=== PATIENT | male | born 1990 | race Caucasian/White ===

== ENCOUNTER → 2019-11-19 07:46 | Outpatient (BNVA) | payer MEDICAID, SELFPAY | PROVIDERS: Visit Provider Nurse Practitioner | DX: F33.9 Major depressive disorder, recurrent, unspecified (principal); F43.10 Post-traumatic stress disorder, unspecified; F40.01 Agoraphobia with panic disorder | CPT/HCPCS: 99203 ==

== ENCOUNTER → 2019-11-20 08:11 | Outpatient (BNVA) | payer MEDICAID, SELFPAY | PROVIDERS: Visit Provider Counselor Mental Health | DX: F90.0 Attention-deficit hyperactivity disorder, predominantly inattentive type (principal); F43.10 Post-traumatic stress disorder, unspecified; F33.9 Major depressive disorder, recurrent, unspecified | CPT/HCPCS: 90834 ==

== ENCOUNTER → 2020-01-24 08:09 | Outpatient (BNVA) | payer MEDICAID, SELFPAY | PROVIDERS: Visit Provider Nurse Practitioner | DX: F33.9 Major depressive disorder, recurrent, unspecified (principal); F43.10 Post-traumatic stress disorder, unspecified; F40.01 Agoraphobia with panic disorder | CPT/HCPCS: 99214 ==

== ENCOUNTER → 2020-01-25 08:07 | Outpatient (BNVA) | payer MEDICAID, SELFPAY | PROVIDERS: Visit Provider Counselor Mental Health | DX: F90.0 Attention-deficit hyperactivity disorder, predominantly inattentive type (principal); F40.01 Agoraphobia with panic disorder; F43.10 Post-traumatic stress disorder, unspecified; F33.9 Major depressive disorder, recurrent, unspecified | CPT/HCPCS: 90834 ==

== ENCOUNTER → 2020-02-05 08:32 | Outpatient (BNVA) | payer MEDICAID, SELFPAY | PROVIDERS: Visit Provider Counselor Mental Health | DX: F40.01 Agoraphobia with panic disorder (principal); F43.10 Post-traumatic stress disorder, unspecified; F33.9 Major depressive disorder, recurrent, unspecified | CPT/HCPCS: 90834 ==

== ENCOUNTER → 2020-03-19 08:09 | Outpatient (BNVA) | payer MEDICAID, SELFPAY | PROVIDERS: Visit Provider Nurse Practitioner | DX: F33.9 Major depressive disorder, recurrent, unspecified (principal); F43.10 Post-traumatic stress disorder, unspecified | CPT/HCPCS: 99213 ==

== ENCOUNTER 2020-05-06 12:58 | Emergency (ER) | payer MEDICAID, SELFPAY ==
[2020-05-06 13:04] VITALS: BP 117/69; PULSE 139; RESP 24; TEMP 37.2; O2SAT 97; BMI 31.3
[2020-05-06 13:10] VITALS: BP 131/71; PULSE 114; RESP 23; O2SAT 97
--- NOTE | 2020-05-06 13:23 | ECG_ITS ---
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 Measurements Intervals [place] Rate: 141 P: 156 LA: 110 QRS: 8 QRSD: 93 T: 156 QT: 287 QTc: 440 Interpretive Statements ECTOPIC ATRIAL TACHYCARDIA WITH SHORT LA INTERVAL, POSSIBLE ATRIAL FLUTTER INDETERMINATE AXIS ST DEVIATION AND MODERATE T-WAVE ABNORMALITY, CONSIDER LATERAL ISCHEMIA [-0.1+ mV T WAVE IN I/aVL/V5/V6] No previous ECG available for comparison Electronically Signed On 05-06-2020 23:50:34 MANIPULATOR OPERATOR by Sherwin Lewis M.D. [email or web address].[email or web address] health centerElite Education Media Groupgreene memorial hospital.PlaceSpeak/store/NU/[id number] f
--- NOTE | 2020-05-06 13:23 | XR_ITS ---
WS: [id number] Exam: XR chest 1V portable [id number] Date/Time of Exam: 05/06/2020 1:23 PM Reason For Exam: dyspnea/cough Comparison 05/20/2010. Findings: The lungs are clear and fully expanded. Costophrenic angles are sharp. No infiltrates. Bronchovascula r relief appears normal. Cardiac silhouette is unremarkable. Bony elements are intact. XR/XR chest 1V portable [id number] IMPRESSION: Unremarkable chest radiograph.
--- NOTE | 2020-05-06 13:30 | ED_ITS ---
HPI - Arrhythmia/Palpitations General: Chief Complaint: Arrhythmia/Palpitations Stated Complaint: tightness of chest/ rapid heart rate Time Seen by Provider: 05/06/20 13:13 History of Present Illness: HPI narrative: 29-year-old male presents emergency room with complaint of tachycardia rapid irregular heart rate. He states 2 days ago he had 2 beers and then passed out when he woke up there injection macias bilaterally in the antecubital fossa. He states he cannot member what happened to him he is vague aches and pains are his chest and abdomen states his urine has been dark and he has had passed several large stools has been nauseous and vomiting. MD complaint: rapid heart beat Onset (ago): day(s) Duration: constant Severity: moderate Context: occurred during rest and occurred during exertion Associated symptoms: Reports anxiety and sense of impending doom; Deny cough, diaphoresis, muscle cramps, nausea, paresthesias, pre-syncope, short of breath, syncope or vomiting Review of Systems Const: Denies: diaphoresis ENMT: Denies: throat pain, ear or mastoid pain, nasal discharge or nasal congestion Card: Denies: syncope or pre-syncope Resp: Denies: dyspnea, productive cough or non-productive cough GI: Denies: nausea or vomiting : Denies: flank pain, dysuria, urinary frequency or urinary urgency Musc: Denies: muscle cramps Skin/Breast: Denies: rash or pruritus Psych: Reports: anxiety [facility] ED PFSH: Medical History Insomnia disorder, with non-sleep disorder mental comorbidity, recurrent Major depression, recurrent, chronic Mood disorder Nightmares associated with chronic post-traumatic stress disorder Panic disorder with agoraphobia Post traumatic stress disorder (PTSD) Physical Exam Const: COMMON NORMALS: no acute distress GENERAL APPEARANCE: cooperative and comfortable ORIENTATION/CONSCIOUSNESS: Yes awake, Yes oriented to person, Yes oriented to place and Yes oriented to time HENMT: COMMON NORMALS: normocephalic, atraumatic and hearing grossly normal bilaterally HEAD & SCALP: normocephalic and atraumatic Eye: COMMON NORMALS: Equal, round and reactive pupils present, EOMs intact bilaterally, conjunctivae normal and no scleral icterus CONJUNCTIVA: Yes conjunctivae normal PUPIL: Yes Equal, round and reactive pupils present Neck/C-Spine: COMMON NORMALS: full ROM, no lymphadenopathy, supple and no JVD Lymph: LYMPHATIC: no lymphadenopathy noted and no lymphedema noted Resp: COMMON NORMALS: normal respiratory effort, No retractions, No use of accessory muscles and clear to auscultation bilaterally AUSCULTATION: clear to auscultation bilaterally Cardio: COMMON NORMALS: no JVD, regular rate, regular rhythm and No murmurs present (Cardio) RATE: regular rate RHYTHM: regular rhythm GI: COMMON NORMALS: Soft to palpation and No hepatosplenomegaly present AUSCULTATION: Yes normoactive bowel sounds PALPATION: Yes Soft to palpation, No Tenderness to palpation present (GI), No Guarding due to palpation present (GI) and Yes No hepatosplenomegaly present Extremity: COMMON NORMALS: normal to inspection, capillary refill normal, no clubbing, cyanosis or edema, no calf tenderness and no pedal edema Neuro: SENSORIUM/ORIENTATION: Yes oriented to person, Yes oriented to place and Yes oriented to time Skin: COMMON NORMALS: no rashes or lesions noted GENERAL SKIN EXAM: no rashes or lesions noted Course Vital Signs: Vital signs: Vital Signs Temperature 98.9 F 05/06/20 13:04 Pulse Rate 139 H 05/06/20 13:04 Respiratory Rate 24 H 05/06/20 13:04 Blood Pressure 117/69 05/06/20 13:04 Pulse Oximetry 97 05/06/20 13:04 MDM - Arrhythmia/Palpitations MDM Narrative: Medical decision making narrative: Urine drug screen positive for methamphetamines. After doses of beta-mekhi patient heart rate is back to normal sinus rhythm will discharge home avoid use of methamphetamines. Lab Data: Labs: Lab Results 05/06/20 05/06/20 05/06/20 Range/Units 14:10 14:10 14:10 WBC 6.2 (4.0-10.0) 10^3/ uL RBC 5.01 (4.1-5.3) 10^6/u L Hgb 15.8 (11.7-16.6) g/dL Hct 43.2 (42.0-52.0) % MCV 86.2 (80-94) fL MCH 31.5 (28.0-34.0) pg MCHC 36.6 H (30.0-36.0) g/dL RDW 13.3 (12.1-15.1) % Plt Count 284 (130-400) 10^3/c mm MPV 10.0 (7.4-10.4) fL Neut % (Auto) 63.6 % Lymph % (Auto) 29.9 % [place] % (Auto) 5.2 % Eos % (Auto) 0.5 % Baso % (Auto) 0.5 % Neut # (Auto) 3.92 (1.8-7.7) 10^3/u L Lymph # (Auto) 1.8 (0.8-4.8) 10^3/u L [place] # (Auto) 0.3 (0.2-0.9) 10^3/u L Eos # (Auto) 0.0 (0.0-0.8) 10^3/u L Baso # (Auto) 0.0 (0.0-0.1) 10^3/u L Nucleated RBC % (a uto) 0 % Nucleated RBCs # 0.0 /100WBC Sodium 139 (136-145) mmol/L Potassium 3.8 (3.5-5.1) mmol/L Chloride 101 (98-107) mmol/L Carbon Dioxide 25 (22-29) mmol/L Anion Gap 16.8 (5-19) BUN 14 (6-20) mg/dL Creatinine 0.8 (0.7-1.2) mg/dL GFR Calculation 113.5 (90-130) mL/min Glucose 74 (65-115) mg/dL Calculated Osmolal ity 287 (285-295) mOsm/k g Calcium 9.8 (8.5-10.5) mg/dL Total Bilirubin 1.2 (0.15-1.2) mg/dL AST 50 H (0-40) U/L ALT 79 H (0-41) U/L Alkaline Phosphata se 82 (40-130) IU/L Creatine Kinase 255 (39-308) U/L Troponin T Baselin e 54 H (0-15) ng/L Total Protein 7.6 (6.6-8.7) g/dL Albumin 4.4 (3.5-5.2) g/dL Globulin 3.2 (1.3-4.6) g/dL TSH 0.41 (0.27-4.20) uIU/ mL Free T4 1.69 (0.82-1.77) ng/d L Urine Color (Yellow) Urine Appearance (CLEAR) Urine pH (5-7) Ur Specific Gravit y (1.005-1.030) Urine Protein (Negative) Urine Glucose (UA) (Normal) Urine Ketones (Negative) Urine Blood (Negative) Urine Nitrate (Negative) Urine Bilirubin (Negative) Urine Urobilinogen (Negative) mg/dL Ur Leukocyte Emelia ase (Negative) Urine Opiates Scre en (Negative) ng/mL Ur Barbiturates Sc reen (Negative) ng/mL Ur Phencyclidine S crn (Negative) ng/mL Ur Amphetamines Sc reen (Negative) ng/mL U Benzodiazepines Scrn (Negative) ng/mL Urine Cocaine Scre en (Negative) ng/mL U Marijuana (THC) Screen (Negative) ng/mL 05/06/20 05/06/20 Range/Units 14:19 14:19 WBC (4.0-10.0) 10^3/ uL RBC (4.1-5.3) 10^6/u L Hgb (11.7-16.6) g/dL Hct (42.0-52.0) % MCV (80-94) fL MCH (28.0-34.0) pg MCHC (30.0-36.0) g/dL RDW (12.1-15.1) % Plt Count (130-400) 10^3/c mm MPV (7.4-10.4) fL Neut % (Auto) % Lymph % (Auto) % [place] % (Auto) % Eos % (Auto) % Baso % (Auto) % Neut # (Auto) (1.8-7.7) 10^3/u L Lymph # (Auto) (0.8-4.8) 10^3/u L [place] # (Auto) (0.2-0.9) 10^3/u L Eos # (Auto) (0.0-0.8) 10^3/u L Baso # (Auto) (0.0-0.1) 10^3/u L Nucleated RBC % (a uto) % Nucleated RBCs # /100WBC Sodium (136-145) mmol/L Potassium (3.5-5.1) mmol/L Chloride (98-107) mmol/L Carbon Dioxide (22-29) mmol/L Anion Gap (5-19) BUN (6-20) mg/dL Creatinine (0.7-1.2) mg/dL GFR Calculation (90-130) mL/min Glucose (65-115) mg/dL Calculated Osmolal ity (285-295) mOsm/k g Calcium (8.5-10.5) mg/dL Total Bilirubin (0.15-1.2) mg/dL AST (0-40) U/L ALT (0-41) U/L Alkaline Phosphata se (40-130) IU/L Creatine Kinase (39-308) U/L Troponin T Baselin e (0-15) ng/L Total Protein (6.6-8.7) g/dL Albumin (3.5-5.2) g/dL Globulin (1.3-4.6) g/dL TSH (0.27-4.20) uIU/ mL Free T4 (0.82-1.77) ng/d L Urine Color Yellow (Yellow) Urine Appearance Clear (CLEAR) Urine pH 5 (5-7) Ur Specific Gravit y 1.025 (1.005-1.030) Urine Protein Neg (Negative) Urine Glucose (UA) Norm (Normal) Urine Ketones 2+ H (Negative) Urine Blood Neg (Negative) Urine Nitrate Negative (Negative) Urine Bilirubin 1+ H (Negative) Urine Urobilinogen 8 H (Negative) mg/dL Ur Leukocyte Emelia ase Negative (Negative) Urine Opiates Scre en Negative (Negative) ng/mL Ur Barbiturates Sc reen Negative (Negative) ng/mL Ur Phencyclidine S crn Negative (Negative) ng/mL Ur Amphetamines Sc reen Positive H (Negative) ng/mL U Benzodiazepines Scrn Negative (Negative) ng/mL Urine Cocaine Scre en Negative (Negative) ng/mL U Marijuana (THC) Screen Negative (Negative) ng/mL Discharge Plan Discharge Patient Disposition: Home Clinical Impression: Atrial ectopic tachycardia, Methamphetamine use Condition: Stable Prescriptions: No Action Zoloft 100 mg tablet 150 mg PO DAILY@0800 RF: 0 Abilify 2 mg tablet 2 mg PO DAILY@0800 RF: 0 Discharge Orders: Discharge ED (Routine); Ordered 05/06/20 Ordered By: Manny Melo Referrals: Amita Zhao FNP [Primary Care Provider] - Discharge Diet: Usual diet Discharge Activity: Resume usual activity Activity Restrictions/Additional Instructions: Follow-up with primary care doctor in the next 3 to 4 days. Coding Level of Care Code ED Mechanical Design Technician for Chg Fwd Exam Comprehensive
[2020-05-06] MEDS: metoprolol tartrate 50 mg Tablet PO (14:06)
[2020-05-06] MEDS: metoprolol tartrate 25 mg Tablet PO (14:06)
[2020-05-06] MEDS: sodium chloride 0.9% 1,000 ML 999 ML IV (14:07)
[2020-05-06 14:10] VITALS: BP 136/73; PULSE 118; RESP 28; O2SAT 99
[2020-05-06 14:14] LABS: Basophils % 0.5 %; Eosinophils % 0.5 %; Hematocrit 43.2 % (42.0-52.0); Hemoglobin 15.8 g/dL (11.7-16.6); Lymphocytes # 1.8 10^3/uL (0.8-4.8); Lymphocytes % 29.9 %; Mean Corpuscular HGB Conc 36.6 g/dL (30.0-36.0); Mean Corpuscular Hemoglobin 31.5 pg (28.0-34.0); Mean Corpuscular Volume 86.2 fL (80-94); Monocytes # 0.3 10^3/uL (0.2-0.9); Monocytes % 5.2 %; Neutrophils # 3.92 10^3/uL (1.8-7.7); Neutrophils % 63.6 %; Nucleated Red Blood Cells % 0 %; Platelet Count 284 10^3/cmm (130-400); Red Blood Count 5.01 10^6/uL (4.1-5.3); Red Cell Distribution Width 13.3 % (12.1-15.1); White Blood Count 6.2 10^3/uL (4.0-10.0)
[2020-05-06 14:37] LABS: Add Urine Microscopic? NO
[2020-05-06 14:37] LABS: Troponin(5th) Baseline 54 ng/L (0-15)
[2020-05-06 14:46] LABS: Alanine Aminotransferase 79 U/L (0-41); Albumin Level 4.4 g/dL (3.5-5.2); Alkaline Phosphatase 82 IU/L (40-130); Anion Gap 16.8 (5-19); Aspartate Amino Transferase 50 U/L (0-40); Blood Urea Nitrogen 14 mg/dL (6-20); Calcium 9.8 mg/dL (8.5-10.5); Carbon Dioxide 25 mmol/L (22-29); Chloride 101 mmol/L (98-107); Creatine Phosphokinase 255 U/L (39-308); Free T4 Free Thyroxine 1.69 ng/dL (0.82-1.77); Globulin 3.2 g/dL (1.3-4.6); Glomerular Filtration Rate 113.5 mL/min (90-130); Glucose 74 mg/dL (65-115); Osmolality Calculated 287 mOsm/kg (285-295); Potassium 3.8 mmol/L (3.5-5.1); Sodium 139 mmol/L (136-145); Thyroid Stimulating Hormone 0.41 uIU/mL (0.27-4.20); Total Bilirubin 1.2 mg/dL (0.15-1.2); Total Protein 7.6 g/dL (6.6-8.7)
[2020-05-06 14:48] LABS: Specific Gravity, Urine 1.025 (1.005-1.030); Urine Appearance Clear (CLEAR); Urine Color Yellow (Yellow); pH Urine 5 (5-7)
[2020-05-06 14:49] LABS: Bilirubin Urine 1+ (Negative); Blood Urine Neg (Negative); Glucose Urine UA Norm (Normal); Ketones Urine 2+ (Negative); Leukocyte Esterase Urine Negative (Negative); Nitrate Urine Negative (Negative); Protein Urine Neg (Negative); Urobilinogen Urine 8 mg/dL (Negative)
[2020-05-06 15:10] VITALS: BP 130/88; PULSE 101; RESP 28
--- NOTE | 2020-05-06 15:23 | ECG_ITS ---
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 Measurements Intervals [place] Rate: 75 P: 36 [place]: 176 QRS: 58 QRSD: 87 T: 45 QT: 373 QTc: 419 Interpretive Statements SINUS RHYTHM WITH SINUS ARRHYTHMIA Compared to ECG 05/06/2020 13:05:51 Indeterminate axis no longer present T-wave abnormality no longer present Possible ischemia no longer present Electronically Signed On 05-07-2020 0:09:50 BISQUE KILN DRAWER by Sherwin Lewis M.D. [email or web address] [email or web address].Hu[employer]/store/OM/[id number]
[2020-05-06 16:10] VITALS: BP 127/98; PULSE 92; RESP 23; O2SAT 99
[2020-05-06 16:31] LABS: Amphetamines Screen Urine Positive (Negative); Barbiturates Screen Urine Negative (Negative); Benzodiazepines Screen Urine Negative (Negative); Cocaine Screen Urine Negative (Negative); Opiate Screen Urine Negative (Negative); PCP Screen Urine Negative (Negative); THC Screen Urine Negative (Negative)
[2020-05-06 16:57] VITALS: BP 125/80; PULSE 84; RESP 24; O2SAT 99
== END 2020-05-06 16:59 | disposition home or self-care (01) ==
PROVIDERS: Emergency Provider Family Medicine; PCP Nurse Practitioner
DX: I47.1 Supraventricular tachycardia (principal); F15.90 Other stimulant use, unspecified, uncomplicated
CPT/HCPCS: 12345; 71045; 80053; 80306; 81003; 82550; 84439; 84443; 84484; 85025; 93005; 96360; 99282; 99283; J7030

== ENCOUNTER 2020-07-27 08:19 | Inpatient (IN) | payer MEDICAID, SELFPAY ==
[2020-07-27] VITALS (11 sets, daily range): BP systolic 109–145; BP diastolic 55–83; PULSE 70–117; RESP 12–22; TEMP 35.8–36.2; O2SAT 96–100; BMI 29.7
--- NOTE | 2020-07-27 08:30 | ECG_ITS ---
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 Measurements Intervals [place] Rate: 78 P: 41 [place]: 178 QRS: 63 QRSD: 99 T: -81 QT: 396 QTc: 453 Interpretive Statements SINUS RHYTHM NONSPECIFIC T-WAVE ABNORMALITY Compared to ECG 05/06/2020 16:55:34 T-wave abnormality now present Sinus arrhythmia no longer present Electronically Signed On 07-27-2020 20:16:28 CDT by Gabbie Gomes M.D. [email or web address] health care systemVirtual Paperuniversity hospitals [facility].[employer]/store/OM/[id number]
[2020-07-27] MEDS: sodium chloride 0.9% 1,000 ML 999 ML IV (08:42)
[2020-07-27 08:55] LABS: Basophils # 0.1 10^3/uL (0.0-0.1); Basophils % 1.1 %; Eosinophils # 0.1 10^3/uL (0.0-0.8); Eosinophils % 2.1 %; Hemoglobin 16.7 g/dL (11.7-16.6); Lymphocytes # 3.3 10^3/uL (0.8-4.8); Lymphocytes % 53.7 %; Mean Corpuscular HGB Conc 36.3 g/dL (30.0-36.0); Mean Corpuscular Hemoglobin 32.6 pg (28.0-34.0); Mean Corpuscular Volume 89.8 fL (80-94); Mean Platelet Volume 10.1 fL (7.4-10.4); Monocytes # 0.5 10^3/uL (0.2-0.9); Monocytes % 8.1 %; Neutrophils # 2.12 10^3/uL (1.8-7.7); Neutrophils % 34.7 %; Nucleated Red Blood Cells % 0 %; Platelet Count 297 10^3/cmm (130-400); Red Blood Count 5.12 10^6/uL (4.1-5.3); Red Cell Distribution Width 13.8 % (12.1-15.1); White Blood Count 6.1 10^3/uL (4.0-10.0)
--- NOTE | 2020-07-27 08:55 | W.ED.OVERDOS ---
HPI - Overdose General: Chief Complaint: Overdose Stated Complaint: OD ON MEDS/ZOLOFT & ABILIFY Time Seen by Provider: 07/27/20 08:28 Source: patient and family Mode of arrival: EMS Limitations: altered mental status History of Present Illness: HPI Narrative: 30-year-old male took an unknown amount of Zoloft and Abilify this morning at around 7:30 AM. He had been drinking last night, and was still hung over, and doesnt know why he took all the pills. His girlfriend was in the bedroom, and states that he went to the bathroom and shut the door, he had not indicated that he was going to do something to hurt himself or that he was upset. He states that the bottles were full , but unable to tell approximate number of pills that he took. He takes 150 mg of Zoloft daily, Abilify 2 mg daily. Last fill date on her records is May 2020, however his pharmacy is not open yet to confirm. His main complaint right now is that he feels nauseous and weak, with abdominal cramping, sweating. No previous history of overdose per his girlfriend. complaint: intentional overdose : Intent: unwilling to say and unknown Context: Accidental Overdose: uncertain what happened Associated symptoms: nausea/vomiting, abdominal pain and lethargy Treatments Prior to Arrival: none Review of Systems General: Reports: ROS unobtainable due to medical condition and ROS unobtainable due to mental status [facility] ED PFSH: Medical History Insomnia disorder, with non-sleep disorder mental comorbidity, recurrent Major depression, recurrent, chronic Mood disorder Nightmares associated with chronic post-traumatic stress disorder Panic disorder with agoraphobia Post traumatic stress disorder (PTSD) Physical Exam Const: COMMON NORMALS: average body habitus GENERAL APPEARANCE: lethargic, ill appearing and diaphoretic; not frail appearing ORIENTATION/CONSCIOUSNESS: Yes awake, Yes oriented to person, Yes oriented to place, Yes confused and Yes lethargic HENMT: COMMON NORMALS: normocephalic and atraumatic HEAD & SCALP: normocephalic and atraumatic FACE & SINUS: normal facial exam and face symmetric Eye: COMMON NORMALS: Equal, round and reactive pupils present, EOMs intact bilaterally, conjunctivae normal and no scleral icterus CONJUNCTIVA: Yes conjunctivae normal PUPIL: Yes Equal, round and reactive pupils present Neck/C-Spine: COMMON NORMALS: no JVD Chest: COMMONS NORMALS: normal inspection of the chest and normal palpation of entire chest wall Resp: COMMON NORMALS: normal respiratory effort EFFORT & INSPECTION: No tachypneic and No respiratory distress Cardio: COMMON NORMALS: no JVD, regular rate and regular rhythm RATE: regular rate RHYTHM: regular rhythm GI: COMMON NORMALS: Normal to inspection, nondistended, normoactive bowel sounds present, Soft to palpation and non-tender PALPATION: Yes Soft to palpation, No Tenderness to palpation present (GI), No Guarding due to palpation present (GI) and No Rigid due to palpation Neuro: SENSORIUM/ORIENTATION: Yes oriented to person, Yes oriented to place, Yes lethargic and Yes fluctuating sensorium MENINGEAL SIGNS: No nuccal rigidity SPEECH: speech normal MOTOR EXAM: no tremor noted, Motor fasciculations not present and Normal motor muscle tone present throughout Psych: APPEARANCE: Yes disheveled ATTITUDE: Yes evasive ACTIVITY/MOTOR BEHAVIOR: Yes Avoids eye contact (attititude/behavior) SPEECH: Yes minimal MOOD & AFFECT: Yes irritable and Yes Flat affect present THOUGHT CONTENT: No Suicidality present, No Homicidality present, No delusions and No Hallucination(s) present MEMORY/COGNITION: Yes memory grossly impaired INSIGHT: Poor insight present (Psych) JUDGEMENT: Poor judgement present (Psych) Course Vital Signs: Vital signs: Vital Signs Temperature 96.6 F L 07/27/20 08:21 Pulse Rate 96 07/27/20 14:17 Respiratory Rate 17 07/27/20 14:17 Blood Pressure 133/70 07/27/20 14:17 Pulse Oximetry 98 07/27/20 14:17 MDM - Overdose MDM Narrative: Medical decision making narrative: 30-year-old male took an unknown amount of Zoloft and Abilify about 1 hour prior to arrival. Actively vomiting and diaphoretic on arrival, but vital signs all stable. Very evasive and vague in his answers-probably due to nausea and other effects of the medicine. Will try to discuss intent of his actions again later when he is feeling better. Poison control was contacted. They agreed with continued supportive care, continuous cardiac monitoring, and serial EKGs. Sinus rhythm with a rate of 78 on initial EKG at 0905. Normal axis. KS 178, QRS 99, QTc 429. Normal QRS morphology. No acute T wave changes. Repeat EKG, 1100; sinus rhythm with a rate of 73, [place] 169, QRS 97, QTc 409. CBC and electrolytes stable. Drug screen negative. Alcohol level 17. LFTs are slightly elevated above baseline. Normal bilirubin. The patient was reevaluated at 1400. He was sitting up, had eaten lunch, said he was feeling better. Still states that he wasn't thinking about anything when he took pills this morning. He denies wanting to kill himself. He denies current suicidal thoughts or ideations, but says he has had them in the past. Has had lots of's stress in his life recently, increase in nightmares and difficulty sleeping, drinking more alcohol, and having relationship problems with several people close to him. He feels like his medicine doesnt help him the way it used to . He does not want to stay in the hospital, says he wants to be at home in his own bed works more comfortable. His girlfriend says that his moods have been labile lately, she is upset that he is not being completely upfront and honest about how he is really feeling. X-ray give him some time to discuss the matter, he said he would voluntarily agree to admission. I called Dr. Ying who accepted the admission but did request that we hold him on a 96-hour hold. Considering the impulsive and dangerous nature of his actions this morning, it is clear that he lacks the insight and judgment to make decisions regarding his own safety at this time. Differential Diagnosis: Overdose Differential Diagnosis: Likely suicide attempt by multiple drug overdose and accidental drug ingestion Medical Records: Attestation: I reviewed the patient's medical records. Lab Data: Attestation: I reviewed the patient's lab results. Labs: Lab Results 07/27/20 07/27/20 07/27/20 Range/Units 08:30 08:30 08:30 WBC 6.1 (4.0-10.0) 10^3/ uL RBC 5.12 (4.1-5.3) 10^6/u L Hgb 16.7 H (11.7-16.6) g/dL Hct 46.0 (42.0-52.0) % MCV 89.8 (80-94) fL MCH 32.6 (28.0-34.0) pg MCHC 36.3 H (30.0-36.0) g/dL RDW 13.8 (12.1-15.1) % Plt Count 297 (130-400) 10^3/c mm MPV 10.1 (7.4-10.4) fL Neut % (Auto) 34.7 % Lymph % (Auto) 53.7 % [place] % (Auto) 8.1 % Eos % (Auto) 2.1 % Baso % (Auto) 1.1 % Neut # (Auto) 2.12 (1.8-7.7) 10^3/u L Lymph # (Auto) 3.3 (0.8-4.8) 10^3/u L [place] # (Auto) 0.5 (0.2-0.9) 10^3/u L Eos # (Auto) 0.1 (0.0-0.8) 10^3/u L Baso # (Auto) 0.1 (0.0-0.1) 10^3/u L Nucleated RBC % (a uto) 0 % Nucleated RBCs # 0.0 /100WBC Sodium 139 (136-145) mmol/L Potassium 3.7 (3.5-5.1) mmol/L Chloride 103 (98-107) mmol/L Carbon Dioxide 23 (22-29) mmol/L Anion Gap 16.7 (5-19) BUN 8 (6-20) mg/dL Creatinine 0.7 (0.7-1.2) mg/dL GFR Calculation 131.5 H (90-130) mL/min Glucose 111 (65-115) mg/dL Calculated Osmolal ity 287 (285-295) mOsm/k g Calcium 9.1 (8.5-10.5) mg/dL Magnesium 1.7 (1.7-2.3) mg/dL Total Bilirubin 0.5 (0.15-1.2) mg/dL AST 68 H (0-40) U/L ALT 139 H (0-41) U/L Alkaline Phosphata se 86 (40-130) IU/L Total Protein 7.6 (6.6-8.7) g/dL Albumin 4.5 (3.5-5.2) g/dL Globulin 3.1 (1.3-4.6) g/dL TSH 0.90 (0.27-4.20) uIU/ mL Urine Color (Yellow) Urine Appearance (CLEAR) Urine pH (5-7) Ur Specific Gravit y (1.005-1.030) Urine Protein (Negative) Urine Glucose (UA) (Normal) Urine Ketones (Negative) Urine Blood (Negative) Urine Nitrate (Negative) Urine Bilirubin (Negative) Urine Urobilinogen (Negative) mg/dL Ur Leukocyte Emelia ase (Negative) Urine RBC (0-2) /hpf Urine WBC (0-5) /hpf Ur Squamous Epith Cells (0-5) /hpf Amorphous Sediment /hpf Urine Bacteria (NONE) /hpf Salicylates < 0.3 L (3-10) mg/dL Urine Opiates Scre en (Negative) ng/mL Acetaminophen < 5.0 L (10-30) ug/mL Ur Barbiturates Sc reen (Negative) ng/mL Ur Phencyclidine S crn (Negative) ng/mL Ur Amphetamines Sc reen (Negative) ng/mL U Benzodiazepines Scrn (Negative) ng/mL Urine Cocaine Scre en (Negative) ng/mL U Marijuana (THC) Screen (Negative) ng/mL Ethyl Alcohol 19 H (0-10) mg/dL 07/27/20 07/27/20 Range/Units 09:15 09:15 WBC (4.0-10.0) 10^3/ uL RBC (4.1-5.3) 10^6/u L Hgb (11.7-16.6) g/dL Hct (42.0-52.0) % MCV (80-94) fL MCH (28.0-34.0) pg MCHC (30.0-36.0) g/dL RDW (12.1-15.1) % Plt Count (130-400) 10^3/c mm MPV (7.4-10.4) fL Neut % (Auto) % Lymph % (Auto) % [place] % (Auto) % Eos % (Auto) % Baso % (Auto) % Neut # (Auto) (1.8-7.7) 10^3/u L Lymph # (Auto) (0.8-4.8) 10^3/u L [place] # (Auto) (0.2-0.9) 10^3/u L Eos # (Auto) (0.0-0.8) 10^3/u L Baso # (Auto) (0.0-0.1) 10^3/u L Nucleated RBC % (a uto) % Nucleated RBCs # /100WBC Sodium (136-145) mmol/L Potassium (3.5-5.1) mmol/L Chloride (98-107) mmol/L Carbon Dioxide (22-29) mmol/L Anion Gap (5-19) BUN (6-20) mg/dL Creatinine (0.7-1.2) mg/dL GFR Calculation (90-130) mL/min Glucose (65-115) mg/dL Calculated Osmolal ity (285-295) mOsm/k g Calcium (8.5-10.5) mg/dL Magnesium (1.7-2.3) mg/dL Total Bilirubin (0.15-1.2) mg/dL AST (0-40) U/L ALT (0-41) U/L Alkaline Phosphata se (40-130) IU/L Total Protein (6.6-8.7) g/dL Albumin (3.5-5.2) g/dL Globulin (1.3-4.6) g/dL TSH (0.27-4.20) uIU/ mL Urine Color Dark yellow (Yellow) Urine Appearance Hazy A (CLEAR) Urine pH 5 (5-7) Ur Specific Gravit y 1.030 (1.005-1.030) Urine Protein 1+ H (Negative) Urine Glucose (UA) Norm (Normal) Urine Ketones Negative (Negative) Urine Blood Neg (Negative) Urine Nitrate Negative (Negative) Urine Bilirubin 1+ H (Negative) Urine Urobilinogen 1 H (Negative) mg/dL Ur Leukocyte Emelia ase Negative (Negative) Urine RBC None (0-2) /hpf Urine WBC None (0-5) /hpf Ur Squamous Epith Cells Rare (0-5) /hpf Amorphous Sediment 3+ /hpf Urine Bacteria 1+ H (NONE) /hpf Salicylates (3-10) mg/dL Urine Opiates Scre en Negative (Negative) ng/mL Acetaminophen (10-30) ug/mL Ur Barbiturates Sc reen Negative (Negative) ng/mL Ur Phencyclidine S crn Negative (Negative) ng/mL Ur Amphetamines Sc reen Negative (Negative) ng/mL U Benzodiazepines Scrn Negative (Negative) ng/mL Urine Cocaine Scre en Negative (Negative) ng/mL U Marijuana (THC) Screen Negative (Negative) ng/mL Ethyl Alcohol (0-10) mg/dL Discharge Plan Discharge Prescriptions: No Action sertraline [Zoloft] 100 mg tablet 150 mg PO DAILY@0800 RF: 0 aripiprazole [Abilify] 2 mg tablet 2 mg PO DAILY@0800 RF: 0 Coding Level of Care Code ED Lab Aid for Emeryg Fwd Exam Comprehensive
--- NOTE | 2020-07-27 09:03 | PC.PHAR ---
PT STATES THAT HE HAS NOT FILLED ANY MEDICATION SINCE MAY. I TOLD HIM THAT HE SHOULD HAVE BEEN OUT BY . HE STATED THAT HE DIDN'T TAKE THEM PRESCRIBED AND HAD MISSED SOME.DOSES. HE STATED THAT HE HAD ON OLD BOTTLE OF ABILIFY THAT HE HAD AT HOME.
[2020-07-27 09:17] LABS: Acetaminophen < 5.0 ug/mL (10-30)
[2020-07-27 09:22] LABS: Alanine Aminotransferase 139 U/L (0-41); Albumin Level 4.5 g/dL (3.5-5.2); Alcohol Level 19 mg/dL (0-10); Alkaline Phosphatase 86 IU/L (40-130); Anion Gap 16.7 (5-19); Aspartate Amino Transferase 68 U/L (0-40); Blood Urea Nitrogen 8 mg/dL (6-20); Calcium 9.1 mg/dL (8.5-10.5); Carbon Dioxide 23 mmol/L (22-29); Chloride 103 mmol/L (98-107); Globulin 3.1 g/dL (1.3-4.6); Glomerular Filtration Rate 131.5 mL/min (90-130); Glucose 111 mg/dL (65-115); Magnesium 1.7 mg/dL (1.7-2.3); Osmolality Calculated 287 mOsm/kg (285-295); Potassium 3.7 mmol/L (3.5-5.1); Sodium 139 mmol/L (136-145); Total Bilirubin 0.5 mg/dL (0.15-1.2); Total Protein 7.6 g/dL (6.6-8.7)
[2020-07-27 09:38] LABS: Salicylate < 0.3 mg/dL (3-10)
--- NOTE | 2020-07-27 10:05 | PC.NURSE ---
patient Girlfriend and mother expressed worry that the ingestion of medication was a suicide attempt as they reported that he has previous attempts, they are unwilling to fill out affidavits at this time wanting to speak with him so that he will admit voluntary, but the gf said if he does not she will fill out affidavit
--- NOTE | 2020-07-27 10:10 | PC.NURSE ---
patient denies SI and HI to this nurse at this time
[2020-07-27 10:24] LABS: Amphetamines Screen Urine Negative (Negative); Barbiturates Screen Urine Negative (Negative); Benzodiazepines Screen Urine Negative (Negative); Cocaine Screen Urine Negative (Negative); Opiate Screen Urine Negative (Negative); PCP Screen Urine Negative (Negative); THC Screen Urine Negative (Negative)
[2020-07-27 10:39] LABS: Add Urine Microscopic? YES; Bilirubin Urine 1+ (Negative); Blood Urine Neg (Negative); Glucose Urine UA Norm (Normal); Ketones Urine Negative (Negative); Leukocyte Esterase Urine Negative (Negative); Nitrate Urine Negative (Negative); Protein Urine 1+ (Negative); Urine Appearance Hazy (CLEAR); Urine Color Dark Yellow (Yellow); Urobilinogen Urine 1 mg/dL (Negative); pH Urine 5 (5-7)
[2020-07-27 10:46] LABS: Amorphous Sediment Urine 3+ /hpf; Bacteria Urine 1+ /hpf; Squamous Epithelial Cell Urine RARE /hpf (0-5)
[2020-07-27 10:47] LABS: Add Urine Culture? No
[2020-07-27] MEDS: lactated ringers 1,000 ML 999 ML IV (11:12)
[2020-07-27] MEDS: LORazepam 0.5 mg Tablet PO (15:10)
[2020-07-27] MEDS: nicotine 2 mg Gum BUCCAL (16:02)
[2020-07-28 06:00] VITALS: BP 128/74; PULSE 79; RESP 16; TEMP 36.7; O2SAT 97
[2020-07-28] MEDS: nicotine 2 mg Gum BUCCAL ×2 (09:28→19:24)
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
[2020-07-28] MEDS: sertraline 100 mg Tablet 200 MG PO (12:25)
[2020-07-28] MEDS: ARIPiprazole 10 mg Tablet 5 MG PO (12:25)
[2020-07-28 13:10] VITALS: BP 136/79; PULSE 65; RESP 18; TEMP 36.7; O2SAT 97
[2020-07-28] MEDS: prazosin 1 mg Capsule PO (19:24)
[2020-07-28 19:35] VITALS: BP 133/95; PULSE 98; RESP 18; TEMP 36.8; O2SAT 97
[2020-07-29 06:00] VITALS: BP 126/83; PULSE 87; RESP 18; TEMP 36.5; O2SAT 97
[2020-07-29] MEDS: sertraline 100 mg Tablet 200 MG PO (07:49)
[2020-07-29] MEDS: nicotine 2 mg Gum BUCCAL (07:49)
[2020-07-29] MEDS: ARIPiprazole 10 mg Tablet 5 MG PO (07:49)
[2020-07-29 09:38] VITALS: BP 126/83; PULSE 87; RESP 18; TEMP 36.5; O2SAT 97
--- NOTE | 2020-07-29 09:42 | P.DS_ITS ---
Diagnoses at Discharge Discharge Diagnosis (1) Major depression, recurrent, chronic: Status: Acute (2) Post traumatic stress disorder (PTSD): Status: Acute (3) Suicidal ideation: Status: Acute Reason for Visit Reason for Visit: OD ON MEDS/ZOLOFT & ABILIFY Hospital Course Hospital Course 30 year old male with history of PTSD, major depressive disorder presenting to the emergency department after ingesting a large number of pills after recently filling his prescriptions after not taking medications for a couple of weeks. Patient continues to report intermittent PTSD and depressive symptoms although he states that he felt like he was not himself when he had ingested the pills; patient states that he feels like he dissociates at times. Given the patient's actions occurred in the context of an acute stressor it is unclear if this is more indicative of an adjustment disorder versus inadequate, immature coping ability given that he has done similar actions under similar circumstances previously. Patient quickly reconstituted on the unit further solidifying that this is unlikely a result of a major depressive episode. Patient's sertraline was increased to 200 mg daily and his Abilify was increased to Abilify 5 mg daily targeting his underlying depression and PTSD while discussing the importance of pursuing trauma based therapy post discharge. Patient tolerated his medication changes well with no reports of any medication side effects. Patient actively participated in unit activities to include group sessions as well as unit milieu with no reports of any behavioral disturbances. Patient was not suicidal at the time of discharge and did not appear to pose an imminent threat of harm to self or others. Low to moderate risk of harm to self given no current suicidal ideation and no current active psychiatric symptoms although patient does have this history of overreactive, impulsive, unexpected behavior in the context of acute stressors which will at times elevated his risk given these inadequate coping strategies in the context of stressors. Use of alcohol or substances would further elevate this risk. Risk mitigation included psychiatric hospitalization for observation for any further suicidal ideation or suicidal behaviors as well as medication stabilization and recommendation to abstain from the use of substances and alcohol as well as encouraging and coordinating for post discharge counseling/therapy targeting the development of more adaptive, appropriate coping strategies. Patient was able to communicate his understanding of the need to develop more adaptive coping strategies in the context of acute life stressors because of concerns that his impulsive behavior could possibly lead to an action that he is not anticipating to include harming himself as well as the need for compliance with his medication, medication management and counseling/therapy follow-up in order to further mitigate his risk of harm to self and others. Involuntary Hold Information 96 Hour Hold: 96 Hour Involuntary Admission: Yes 96 Hour Hold Ending Date: 08/01/20 96 Hour Hold Ending Time: 12:01 Mental Status Exam MSE Comments: Appropriately groomed and dressed, initially lying in bed but sitting up, calm, cooperative, pleasant, good eye contact Speech is normal rate and volume, spontaneous, clear articulation, not pressured I feel good, smiles at times during the interview, full range, not labile Alert and oriented to person, place, time, situation Memory and concentration appear to be fair to intact per interview Thought process, linear, no flight of ideas, no looseness of associations Thought content, no delusions, no hallucinations, no suicidal or homicidal ideation Insight and judgment appear to be fair Discharge Data Data Completed and Pending: Pending at discharge Category Date Time Status Vitamin D 1,25 Di hydroxy Routine Lab 07/28/20 12:02 Received Labs from last 24 hours 07/27/20 08:30 25-OH Vitamin D To myla Pending 1,25 Dihydroxy Vit D2 Pending 1,25 Dihydroxy Vit D3 Pending Vitals: Last Vital Signs Temp 97.7 F 07/29/20 09:38 Pulse 87 07/29/20 09:38 Resp 18 07/29/20 09:38 BP 126/83 07/29/20 09:38 Pulse Ox 97 07/29/20 09:38 Discharge Plan Discharge Patient Disposition: Home Condition: Stable Prescriptions: New prazosin 1 mg Capsule 1 mg PO BEDTIME Qty: 30 RF: 0 sertraline 100 mg Tablet 200 mg PO DAILY Qty: 30 RF: 0 aripiprazole 10 mg Tablet 5 mg PO DAILY Qty: 30 RF: 0 Discontinued sertraline [Zoloft] 100 mg tablet 150 mg PO DAILY@0800 RF: 0 aripiprazole [Abilify] 2 mg tablet 2 mg PO DAILY@0800 RF: 0 Discharge Orders: Discharge Order (Routine); Ordered 07/29/20 Ordered By: Belkys Ying Referrals: Milady Batista PMHNP [Staff Physician] - 08/11/20 1:30 pm (Hospital follow up Phone visit) Discharge Diet: Regular Discharge Activity: Resume usual activity Patient Instructions: Prazosin (By mouth), Sertraline (By mouth), Aripiprazole (By mouth) Discharge Attestations NPU Time Spent in Discharge Care*: greater than 30 min Status at Discharge: Cognitive status at discharge: cognitively intact , Beh avioral status at discharge: cooperative , Functional status at discharge: independent ambulation Overall status at discharge: patient is back to baseline Coding Level of Care Code Acute Equipment Or Machinery Cleaner for Irwin Fwd Diagnoses Major depression, recurrent, chronic F33.9 Post traumatic stress disorder (PTSD) F43.10 Suicidal ideation R45.436
[2020-08-04 01:17] LABS: Vit D 1,25 (Oh)2, Total 27 pg/mL (18-72); Vit D2 1,25 (Oh)2 <8 pg/mL; Vit D3 1,25 (Oh)2 27 pg/mL
== END 2020-07-29 10:31 | disposition home or self-care (01) | DRG 885 ==
LOC: ER 08:51 → NP 15:30
PROVIDERS: Admitting Provider Psychiatry & Neurology Psychiatry; Emergency Provider Family Medicine; Visit Provider Psychiatry & Neurology Psychiatry
DX: F33.9 Major depressive disorder, recurrent, unspecified (principal); R45.851 Suicidal ideations; F43.12 Post-traumatic stress disorder, chronic; F60.9 Personality disorder, unspecified; Z91.14 Patient's other noncompliance with medication regimen; Z63.0 Problems in relationship with spouse or partner; F43.20 Adjustment disorder, unspecified
CPT/HCPCS: 80053; 80306; 80307; 81001; 82652; 83735; 84443; 85025; 93005; 96360; 96361; 99285; J7030

== ENCOUNTER → 2020-08-12 08:59 | Outpatient (BNVA) | payer MEDICAID, SELFPAY | PROVIDERS: Visit Provider Nurse Practitioner | DX: F43.10 Post-traumatic stress disorder, unspecified (principal); F33.9 Major depressive disorder, recurrent, unspecified | CPT/HCPCS: 99214 ==

== ENCOUNTER 2020-09-27 20:35 | Emergency (ER) | payer MEDICAID, SELFPAY ==
[2020-09-27 20:41] VITALS: BP 112/79; PULSE 128; RESP 17; TEMP 36.8; O2SAT 97; BMI 34.0
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
[2020-09-27 20:57] VITALS: PULSE 70; RESP 17; O2SAT 99
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
[2020-09-27] MEDS: lidocaine 1% INJ 20 mL INJECTION (21:26)
[2020-09-27] MEDS: cephALEXin 500 mg Capsule PO (22:45)
[2020-09-27] MEDS: neomycin-poly-bacitracin oint 0.9 gm Pkt 1 APPLIC TOPICAL (22:45)
[2020-09-27 22:52] VITALS: PULSE 81; RESP 17; O2SAT 99
== END 2020-09-27 22:54 | disposition home or self-care (01) ==
PROVIDERS: Emergency Provider Physician Assistant
DX: S61.411A Laceration without foreign body of right hand, initial encounter (principal); S61.217A Laceration without foreign body of left little finger without damage to nail, initial encounter; S60.512A Abrasion of left hand, initial encounter; S60.511A Abrasion of right hand, initial encounter; W25.XXXA Contact with sharp glass, initial encounter
CPT/HCPCS: 12001; 73130; 99283

== ENCOUNTER 2020-09-30 01:09 | Emergency (ER) | payer MEDICAID, SELFPAY ==
[2020-09-30 01:17] VITALS: BP 142/83; PULSE 95; RESP 17; TEMP 36.9; O2SAT 98; BMI 34.0
--- NOTE | 2020-09-30 01:39 | ED_ITS ---
HPI - Psych General: Chief Complaint: Psychiatric Symptoms Stated Complaint: Mhe Time Seen by Provider: 09/30/20 01:15 History of Present Illness: HPI Narrative: Patient is a well-appearing 30-year-old male seen for psychiatric symptoms. He states that he has been previously diagnosed with PTSD and depression and takes medication for this and sees a psychiatrist, however he feels that there may be more to his diagnoses and would like to talk to a psychiatrist tomorrow. He states that he sees shadow people in the corner of his eyes and often hears people talking that he cannot see for often a distance. He states that he has no command hallucinations, only that the voices say mean things. He has never been diagnosed with schizophrenia to his knowledge. He cuts frequently, most recently several days ago on his left arm, however he denies suicidal and homicidal ideation and I believe him. He has no other acute complaints. Review of Systems General: Reports: 10 or more systems reviewed and unremarkable except in HPI and below PFSH ED PFSH: Medical History Insomnia disorder, with non-sleep disorder mental comorbidity, recurrent Major depression, recurrent, chronic Mood disorder Nightmares associated with chronic post-traumatic stress disorder Panic disorder with agoraphobia Post traumatic stress disorder (PTSD) Physical Exam Const: COMMON NORMALS: no acute distress, patient oriented x3 and alert GENERAL APPEARANCE: well kempt HENMT: COMMON NORMALS: normocephalic and atraumatic HEAD & SCALP: normocephalic and atraumatic Eye: COMMON NORMALS: Equal, round and reactive pupils present, EOMs intact bilaterally and no scleral icterus PUPIL: Yes Equal, round and reactive pupils present Resp: COMMON NORMALS: normal respiratory effort and No retractions Cardio: COMMON NORMALS: regular rate, regular rhythm and No murmurs present (Cardio) RATE: regular rate RHYTHM: regular rhythm GI: COMMON NORMALS: Normal to inspection, nondistended, normoactive bowel sounds present, Soft to palpation and non-tender PALPATION: Yes Soft to palpation Neuro: COMMON NORMALS: patient oriented x3 SENSORIUM/ORIENTATION: Yes alert Psych: COMMON NORMALS: cooperative, denies homicidal ideation and denies suicidal ideation APPEARANCE: Yes grossly normal and Yes well kempt ATTITUDE: Yes engaged and Yes paranoid (Admits intermittent paranoia but is not currently seeing or hearing nonexis) ACTIVITY/MOTOR BEHAVIOR: Yes appropriate eye contact and Yes fidgeting SPEECH: Yes rapid MOOD & AFFECT: Yes euthymic mood THOUGHT PROCESS: racing thoughts THOUGHT CONTENT: No Suicidality present, No Homicidality present and Yes Hallucination(s) present auditory and visual Skin: COMMON NORMALS: no rashes or lesions noted GENERAL SKIN EXAM: no rashes or lesions noted OTHER: Multiple self-induced superficial lacerations to left upper extremity, most recently inflicted 3 days ago. There is 1 l aceration of the forearm which is gaping roughly half a centimeter and it is roughly 3 cm in length, however the wound is too old for primary repair. Tetanus is up-to-date. Course Vital Signs: Vital signs: Vital Signs Temperature 98.4 F 09/30/20 01:17 Pulse Rate 91 09/30/20 03:47 Respiratory Rate 14 09/30/20 03:47 Blood Pressure 121/87 09/30/20 03:47 Pulse Oximetry 97 09/30/20 03:47 MDM - Psych MDM Narrative: Medical decision making narrative: Patient remained hemodynamically stable throughout ED course. He is requesting an audience with psychiatry for new symptoms which she feels may be indicative of paranoid schizophrenia. He is seeing shadows and hearing voices of people that are not in the room. He denies alcohol or drug abuse. He spoke with psychiatry who feels he is not a danger to himself or anyone else thus he can be discharged safely for follow-up to a psychiatrist as an outpatient in 1 week. He knows he is was welcome back to the emergency department if his symptoms get worse before patient follow-up. Discharge Plan Discharge Patient Disposition: Home Clinical Impression: Major depression, recurrent, chronic, Post traumatic stress disorder (PTSD), ADHD, predominantly inattentive type, Auditory hallucinations, Episodes of formed visual hallucinations Condition: Stable Prescriptions: No Action aripiprazole 10 mg tablet 5 mg PO DAILY Qty: 30 RF: 1 prazosin 1 mg capsule 1 mg PO BEDTIME Qty: 30 RF: 1 sertraline 100 mg tablet 200 mg PO DAILY Qty: 30 RF: 1 cephalexin 500 mg capsule 500 mg PO Q6H 4 Days Qty: 16 RF: 0 Discharge Orders: Discharge ED (Routine); Ordered 09/30/20 Ordered By: Ruben Redd Discharge Diet: Usual diet Discharge Activity: Resume usual activity Patient Instructions: Opioid Safety Activity Restrictions/Additional Instructions: Please follow-up with your psychiatrist as previously planned. You are was welcome back in the emergency department if your symptoms get worse before he can be seen as an outpatient. Coding Level of Care Code ED Shadowgraph Scale Operator for Irwin Fwd Exam Comprehensive
[2020-09-30 03:47] VITALS: BP 121/87; PULSE 91; RESP 14; O2SAT 97
== END 2020-09-30 03:49 | disposition home or self-care (01) ==
PROVIDERS: Emergency Provider Student in an Organized Health Care Education/Training Program
DX: R44.0 Auditory hallucinations (principal); R44.1 Visual hallucinations; F32.89 Other specified depressive episodes; F43.10 Post-traumatic stress disorder, unspecified; F90.0 Attention-deficit hyperactivity disorder, predominantly inattentive type
CPT/HCPCS: 99283

== ENCOUNTER → 2021-01-02 08:43 | Outpatient (BNVA) | payer OTHER, SELFPAY | PROVIDERS: Visit Provider Counselor Mental Health | DX: F40.01 Agoraphobia with panic disorder (principal); F43.12 Post-traumatic stress disorder, chronic; F33.9 Major depressive disorder, recurrent, unspecified; F22 Delusional disorders | CPT/HCPCS: 90834 ==

== ENCOUNTER → 2021-01-14 08:00 | Outpatient (BNVA) | payer OTHER, SELFPAY | PROVIDERS: Visit Provider Counselor Mental Health | DX: F40.01 Agoraphobia with panic disorder (principal); F43.10 Post-traumatic stress disorder, unspecified; F33.9 Major depressive disorder, recurrent, unspecified | CPT/HCPCS: 90834 ==

== ENCOUNTER → 2021-01-21 08:45 | Outpatient (BNVA) | payer OTHER, SELFPAY | PROVIDERS: Visit Provider Counselor Mental Health | DX: F40.01 Agoraphobia with panic disorder (principal); F43.10 Post-traumatic stress disorder, unspecified; F33.9 Major depressive disorder, recurrent, unspecified | CPT/HCPCS: 90834 ==

== ENCOUNTER → 2021-01-28 07:43 | Outpatient (BNVA) | payer OTHER, SELFPAY | PROVIDERS: Visit Provider Counselor Mental Health | DX: F40.01 Agoraphobia with panic disorder (principal); F43.10 Post-traumatic stress disorder, unspecified; F33.9 Major depressive disorder, recurrent, unspecified | CPT/HCPCS: 90834 ==

== ENCOUNTER → 2021-02-04 13:44 | Outpatient (BNVA) | payer OTHER, SELFPAY | PROVIDERS: Visit Provider Nurse Practitioner Psychiatric/Mental Health | DX: F33.3 Major depressive disorder, recurrent, severe with psychotic symptoms (principal); F43.10 Post-traumatic stress disorder, unspecified; F17.290 Nicotine dependence, other tobacco product, uncomplicated; F51.5 Nightmare disorder; Z03.89 Encounter for observation for other suspected diseases and conditions ruled out | CPT/HCPCS: 99215 ==

== ENCOUNTER → 2021-02-05 12:56 | Outpatient (BNVA) | payer OTHER, SELFPAY | PROVIDERS: Visit Provider Nurse Practitioner Psychiatric/Mental Health | DX: Z03.89 Encounter for observation for other suspected diseases and conditions ruled out (principal) | CPT/HCPCS: 80053; 80061; 83036 ==

== ENCOUNTER → 2021-02-11 12:46 | Outpatient (BNVA) | payer OTHER, SELFPAY | PROVIDERS: Visit Provider Counselor Mental Health | DX: F43.11 Post-traumatic stress disorder, acute (principal); F33.9 Major depressive disorder, recurrent, unspecified; F41.1 Generalized anxiety disorder | CPT/HCPCS: 90834 ==

== ENCOUNTER → 2021-02-18 09:36 | Outpatient (BNVA) | payer OTHER, SELFPAY | PROVIDERS: Visit Provider Nurse Practitioner Psychiatric/Mental Health | DX: F33.3 Major depressive disorder, recurrent, severe with psychotic symptoms (principal); F51.5 Nightmare disorder; F43.10 Post-traumatic stress disorder, unspecified; F17.290 Nicotine dependence, other tobacco product, uncomplicated | CPT/HCPCS: 99215 ==

== ENCOUNTER → 2021-03-04 08:43 | Outpatient (BNVA) | payer OTHER, SELFPAY | PROVIDERS: Visit Provider Counselor Mental Health | DX: F43.11 Post-traumatic stress disorder, acute (principal); F33.9 Major depressive disorder, recurrent, unspecified | CPT/HCPCS: 90834 ==

== ENCOUNTER 2021-03-12 17:02 | Inpatient (IN) | payer MEDICAID, SELFPAY ==
[2021-03-12 17:08] VITALS: BP 120/70; PULSE 122; RESP 16; TEMP 36.9; O2SAT 95
[2021-03-12 17:16] VITALS: BP 136/77; PULSE 102; RESP 16; TEMP 36.9; O2SAT 97
--- NOTE | 2021-03-12 17:19 | ED_ITS ---
HPI - General Adult General: Chief complaint: Psychiatric Symptoms Stated complaint: SI Time Seen by Provider: 03/12/21 17:15 History of Present Illness: HPI narrative: HPI: [30]yo patient w/ hx of depression BIBA for acute suicidal ideation with plan. for On arrival, the patient is AAOx3 and cooperative with my evaluation. No focal complaints of chest pain, shortness of breath, palpitations, N/V, focal GI/ complaints. +SI. Since noon, patient plans to hang himself. No complaints of hallucinations. Onset: acute since 12pm Duration: ongoing Location: home Severity: severe Review of Systems Narrative: Constitutional: No fever, no chills. HEENT: No vision changes CV: No chest pain, no palpitations PULM: No productive cough, no dyspnea. GI: No abdominal pain, no N/V/D. : No dysuria MSKEL: No muscle pain SKIN: No new rashes, no lesions. NEURO: No headache, no focal weakness. HEME: No visible bruises PSYCH: Normal mood, +SI PFSH ED PFSH: Medical History (Updated 02/16/21 @ 08:11 by Randolph Ying DO) Insomnia disorder, with non-sleep disorder mental comorbidity, recurrent Major depressive disorder, recurrent, severe with psychotic symptoms Mood disorder Nicotine dependence Nightmares associated with chronic post-traumatic stress disorder Panic disorder with agoraphobia Post traumatic stress disorder (PTSD) Psychiatric care Social History Smoking and tobacco status: current every day smoker Alcohol intake: current Alcohol intake frequency: holidays/special occasions only Physical Exam Narrative: EXAM NARRATIVE: Head: Atraumatic Eyes: PERRL, conjunctiva without injection, eyes tracking ENT: Mucous membrane moist NECK: Supple without lymphadenopathy LUNGS: LCTAB CV: RRR ABDOMEN: Soft, nontender EXTREMITY: Normal ROM SKIN: No rash or erythema NEURO: Awake and alert. No focal weakness PSYCH: Cooperative mood and affect. Course Vital Signs: Vital signs: Vital Signs Temperature 98.4 F 03/12/21 17:08 Pulse Rate 122 H 03/12/21 17:08 Respiratory Rate 16 03/12/21 17:08 Blood Pressure 120/70 03/12/21 17:08 Pulse Oximetry 95 03/12/21 17:08 MDM - General Adult MDM Narrative: Medical decision making narrative: [30]yo patient w/ hx of depression presenting for suicidal ideation with plan. HDS, exam within normal limit Thoughts are linear and organized, and the patient has no AH/VH, or HI. Clinically the patient displays no overt toxidrome; they are well appearing, with low suspicion for toxic ingestion given history and exam. Symptoms unlikely 2/2 anemia, hypothyroidism, infection, or ICH. Workup: CBC, CMP, Lipase, salicylate/tylenol, UDS Lab findings: wnl [6:30pm] On reassessment, labs and workup wnl. Patient is hemodynamically stable with no acute medical complaints. Case discussed with psychiatric provider Dr. Martinez at [facility] psych inpatient with recommendation for admission Disposition: Psych Discharge Plan Discharge Prescriptions: No Action prazosin 2 mg capsule 6 mg PO .bedtime Qty: 90 RF: 1 fluoxetine [Prozac] 20 mg capsule 20 mg PO .morning Qty: 30 RF: 1 propranolol 10 mg tablet 10 mg PO .morning Qty: 30 RF: 1 risperidone [Risperdal] 1 mg tablet 1 mg PO BID Qty: 60 RF: 1 Coding Level of Care Code ED Foreign Food Cook Specialty for Irwin Ventura
[2021-03-12 17:36] LABS: Basophils # 0.1 10^3/uL (0.0-0.1); Basophils % 0.7 %; Eosinophils # 0.1 10^3/uL (0.0-0.8); Eosinophils % 0.9 %; Hematocrit 41.2 % (42.0-52.0); Hemoglobin 15.4 g/dL (11.7-16.6); Lymphocytes # 2.4 10^3/uL (0.8-4.8); Lymphocytes % 26.8 %; Mean Corpuscular HGB Conc 37.4 g/dL (30.0-36.0); Mean Corpuscular Hemoglobin 32.9 pg (28.0-34.0); Mean Platelet Volume 10.3 fL (7.4-10.4); Monocytes # 0.4 10^3/uL (0.2-0.9); Monocytes % 4.9 %; Neutrophils # 5.97 10^3/uL (1.8-7.7); Neutrophils % 66.5 %; Nucleated Red Blood Cells % 0 %; Platelet Count 247 10^3/cmm (130-400); Red Blood Count 4.68 10^6/uL (4.1-5.3); Red Cell Distribution Width 12.8 % (12.1-15.1)
[2021-03-12 17:57] LABS: Anion Gap 13.3 (5-19); Blood Urea Nitrogen 8 mg/dL (6-20); Calcium 9.3 mg/dL (8.5-10.5); Carbon Dioxide 24 mmol/L (22-29); Chloride 105 mmol/L (98-107); Glomerular Filtration Rate 131.5 mL/min (90-130); Glucose 101 mg/dL (65-115); Osmolality Calculated 286 mOsm/kg (285-295); Potassium 3.3 mmol/L (3.5-5.1); Sodium 139 mmol/L (136-145)
[2021-03-12 18:00] LABS: Acetaminophen < 5.0 ug/mL (10-30); Salicylate < 0.3 mg/dL (3-10)
[2021-03-12 18:03] LABS: Amphetamines Screen Urine Negative (Negative); Barbiturates Screen Urine Negative (Negative); Benzodiazepines Screen Urine Negative (Negative); Cocaine Screen Urine Negative (Negative); Opiate Screen Urine Negative (Negative); PCP Screen Urine Negative (Negative); THC Screen Urine Negative (Negative)
--- NOTE | 2021-03-12 18:09 | PC.NURSE ---
Pt arrived via POV from her PCP, pt has been having intermittent chest pain since January. Pt denies any pain, no N/V, just doing what my doctor told me to do . Pt A/O x4, vs taken, pt placed on monitor.
--- NOTE | 2021-03-12 18:29 | PC.NURSE ---
Pt requesting to leave AMA, Dr. Ventura advised and went in to talk with pt. Pt signed AMA paperwork.
--- NOTE | 2021-03-12 18:49 | PC.NURSE ---
Pt arrvied via POV with mother, Pt reports having auditory hallucinations, worse today than they have been as pt reports he has auditory hallucinations all the time. Pt states he was going to hang himself from the shower nusrat. Pts mom reports pt saw his airport operations officer today and was advised he will need to complete the incarciration time he is scheduled for starting today. Mom reports dropping pt off at home and returning about 20 minutes later to findpt extremely distraught and making suicidal statements. Pt A/O, vss, pt changed onto blue scrubs and personal items secured in the file cabinet.
[2021-03-12 21:30] VITALS: BP 109/57; PULSE 91; RESP 16; O2SAT 95
[2021-03-13 06:00] VITALS: BP 112/71; PULSE 77; RESP 17; TEMP 36.6; O2SAT 98
[2021-03-13] MEDS: nicotine 2 mg Gum BUCCAL ×6 (08:09→20:34)
[2021-03-13] MEDS: risperiDONE 1 mg Tablet PO ×2 (08:09→17:55)
[2021-03-13] MEDS: propranolol 20 mg Tablet 10 MG PO (08:09)
[2021-03-13] MEDS: fluoxetine 20 mg Capsule PO (08:09)
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
--- NOTE | 2021-03-13 13:47 | NPU.GN ---
[facility] Topic:Dice Breaker Psych Education General Mood of Group: Darvin did attend group this morning. He was social and participated in group activity. Rafat seemed polite with others in the group.
[2021-03-13 14:00] VITALS: BP 105/73; PULSE 74; RESP 20; TEMP 36.9; O2SAT 98
[2021-03-13] MEDS: prazosin 1 mg Capsule PO (20:33)
[2021-03-13] MEDS: prazosin 5 mg Capsule PO (20:33)
[2021-03-13 21:59] VITALS: BP 110/70; PULSE 67; RESP 18; TEMP 36.7; O2SAT 98
[2021-03-14 06:00] VITALS: BP 93/59; PULSE 90; RESP 17; TEMP 36.6; O2SAT 97
[2021-03-14] MEDS: nicotine 2 mg Gum BUCCAL ×7 (06:25→19:03)
[2021-03-14] MEDS: propranolol 20 mg Tablet 10 MG PO (08:08)
[2021-03-14] MEDS: risperiDONE 1 mg Tablet PO ×2 (08:09→11:19)
[2021-03-14] MEDS: fluoxetine 20 mg Capsule PO ×2 (08:09→11:19)
[2021-03-14 14:00] VITALS: BP 93/59; PULSE 90; RESP 17; TEMP 36.6; O2SAT 97
--- NOTE | 2021-03-14 16:49 | W.PM.NPUPNS ---
Subjective NPU Subjective: Interval history: Patient resents today reporting that he is doing okay with the increased medications thus far. He is a little antsy to discharge but respect the fact that he is to be some observation after the changes are made to make sure that they see beneficial and has not been having symptoms and problems that he was having prior to admission. He denied he other concerns and reports that he is eating okay and sleeping okay. Mental Status Exam MSE Comments: This is an obese, white male, in hospital scrubs, with adequate grooming and eye contact. No abnormal movements. Cooperative with exam in no acute distress. Speech was normal rate and volume. Mood described as ?shitty?; affect euthymic. Thought process, organized. Thought content: patient endorsed suicidality but denies homicidality; he endorsed paranoia but did not appear guarded; he endorsed that he hears voices, most of the time, and occasionally sees things, but he did not appear to be attending to internal stimuli. Attention and concentration appeared intact, and memory appeared reliable, but none were formally tested. He is alert and oriented times three. Insight and judgment appear fair. Impulse control is impaired. Vitals/I&O/Wt Last Vital Signs Temp 97.9 F 03/14/21 14:00 Pulse 90 03/14/21 14:00 Resp 17 03/14/21 14:00 BP 93/59 03/14/21 14:00 Pulse Ox 97 03/14/21 14:00 Weight last 48 hrs Weight 90.718 kg Data NPU : 03/12/21 17:30 03/12/21 17:30 A&P Additional A&P Information (1) Nicotine dependence: (2) Major depressive disorder, recurrent, severe with psychotic symptoms: (3) Post traumatic stress disorder (PTSD): (4) Nightmares associated with chronic post-traumatic stress disorder: (5) ADHD, predominantly inattentive type: (6) Insomnia disorder, with non-sleep disorder mental comorbidity, recurrent: (7) Panic disorder with agoraphobia: Additional A&P Information This is a 30-year-old, white male, with post-traumatic stress disorder, and major depressive disorder, recurrent, who presents with suicidal thinking and reports that he can not contract for safety outside of the hospital. 1. Continue current medication. We will consider increasing propranolol tomorrow. 2. Encourage individual, group, and milieu therapy. 3. Continue q-15 minute checks for safety. Involuntary Hold Information 96 Hour Hold: 96 Hour Involuntary Admission: No 96 Hour Hold Ending Date: 08/01/20 96 Hour Hold Ending Time: 12:01 Attestations NPU Medical Necessity Statement*: Inpatient hospitalization is medically necessary and the clinically appropriate intervention, at this time. We will monitor medications and make changes as indicated. Likely length of stay is 2-4 days. Coding Level of Care Code Acute Arborist Representative for Irwin Vnetura
[2021-03-14] MEDS: risperiDONE 1 mg Tablet 2 MG PO (18:14)
[2021-03-14] MEDS: prazosin 1 mg Capsule PO (20:26)
[2021-03-14] MEDS: prazosin 5 mg Capsule PO (20:26)
[2021-03-14 22:00] VITALS: BP 114/64; PULSE 100; RESP 18; TEMP 36.8; O2SAT 98
[2021-03-15 06:00] VITALS: BP 125/67; PULSE 148; RESP 18; TEMP 36.8; O2SAT 97
[2021-03-15] MEDS: nicotine 2 mg Gum BUCCAL ×5 (06:18→18:21)
[2021-03-15] MEDS: propranolol 20 mg Tablet 10 MG PO (08:17)
[2021-03-15] MEDS: risperiDONE 1 mg Tablet 2 MG PO ×2 (08:17→18:21)
[2021-03-15] MEDS: fluoxetine 20 mg Capsule 40 MG PO (08:17)
[2021-03-15] MEDS: hyDROXYzine 25 mg Capsule 50 MG PO ×2 (12:46→20:25)
--- NOTE | 2021-03-15 12:46 | PC.NURSE ---
PRN VISTARIL ADMINISTERED VISTARIL 50 MG PO FOR PATIENT C/O INCREASING ANXIETY. WILL MONITOR FOR MEDICATION EFFECTIVENESS.
--- NOTE | 2021-03-15 13:22 | W.PM.NPUPNS ---
Subjective NPU Subjective: Interval history: Patient presents today reporting that he is feeling a bit better. He is starting to think about discharge and what is next. He reports that he is responding well to the medication changes he believes and is feeling like he is going to be able to manage himself with his mother support moving forward. We discussed the likelihood of discharge the next 48 hours. Mental Status Exam MSE Comments: This is an obese, white male, in hospital scrubs, with adequate grooming and eye contact. No abnormal movements. Cooperative with exam in no acute distress. Speech was normal rate and volume. Mood described as better; affect euthymic. Thought process, organized. Thought content: patient denied suicidality or homicidality; there were no delusions reported or noted; he denied current auditory or visual hallucinations. Attention and concentration appeared intact, and memory appeared reliable, but none were formally tested. He is alert and oriented times three. Insight and judgment appear fair. Impulse control is limited, but improving. Vitals/I&O/Wt Last Vital Signs Temp 98.2 F 03/15/21 06:00 Pulse 148 H 03/15/21 06:00 Resp 18 03/15/21 06:00 BP 125/67 03/15/21 06:00 Pulse Ox 97 03/15/21 06:00 Weight last 48 hrs Weight 90.718 kg Data NPU : 03/12/21 17:30 03/12/21 17:30 A&P Additional A&P Information (1) Nicotine dependence: (2) Major depressive disorder, recurrent, severe with psychotic symptoms: (3) Post traumatic stress disorder (PTSD): (4) Nightmares associated with chronic post-traumatic stress disorder: (5) ADHD, predominantly inattentive type: (6) Insomnia disorder, with non-sleep disorder mental comorbidity, recurrent: (7) Panic disorder with agoraphobia: Additional A&P Information This is a 30-year-old, white male, with post-traumatic stress disorder, and major depressive disorder, recurrent, who presents with suicidal thinking and reports that he can not contract for safety outside of the hospital. 1. Continue current medication. We will consider increasing propranolol tomorrow. 2. Encourage individual, group, and milieu therapy. 3. Continue q-15 minute checks for safety. Involuntary Hold Information 96 Hour Hold: 96 Hour Involuntary Admission: No 96 Hour Hold Ending Date: 08/01/20 96 Hour Hold Ending Time: 12:01 Attestations NPU Medical Necessity Statement*: Inpatient hospitalization is medically necessary and the clinically appropriate intervention, at this time. We will monitor medications and make changes as indicated. Likely length of stay is 1-3 days. Coding Level of Care Code Acute Communication Center Operator for Irwin Ventura
[2021-03-15 14:00] VITALS: BP 108/66; PULSE 86; RESP 20; TEMP 36.7; O2SAT 97
[2021-03-15] MEDS: prazosin 1 mg Capsule PO (20:25)
[2021-03-15] MEDS: trazodone 50 mg Tablet PO (20:25)
[2021-03-15] MEDS: prazosin 5 mg Capsule PO (20:25)
--- NOTE | 2021-03-15 20:25 | PC.NURSE ---
pt requested sleep and anxiety meds. trazodone 50mg po for sleep and vistaril 50mg po for anxiety given.
[2021-03-15 20:59] VITALS: BP 101/58; PULSE 60; RESP 17; TEMP 36.9; O2SAT 97
--- NOTE | 2021-03-15 22:36 | PC.NURSE ---
pt resting quietly with both eyes closed at this time.
[2021-03-16 06:00] VITALS: BP 132/89; PULSE 78; RESP 15; TEMP 37; O2SAT 98
[2021-03-16] MEDS: nicotine 2 mg Gum BUCCAL ×2 (07:59→10:56)
[2021-03-16] MEDS: propranolol 20 mg Tablet 10 MG PO (07:59)
[2021-03-16] MEDS: risperiDONE 1 mg Tablet 2 MG PO (08:00)
[2021-03-16] MEDS: fluoxetine 20 mg Capsule 40 MG PO (08:00)
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
[2021-03-16 11:45] VITALS: BP 132/89; PULSE 78; RESP 15; TEMP 37; O2SAT 98
--- NOTE | 2021-03-16 11:48 | NPU.GN ---
[facility] Topic:Stressors Psych Education Worksheet General Mood of Group: Rafat did attend group therapy this morning. He participated with others in the group
== END 2021-03-16 11:53 | disposition home or self-care (01) | DRG 885 ==
LOC: ER 18:11 → NP 03-13 06:29
PROVIDERS: Admitting Provider Psychiatry & Neurology Psychiatry; Emergency Provider Emergency Medicine; PCP Family Medicine; Visit Provider Psychiatry & Neurology Psychiatry
DX: F33.3 Major depressive disorder, recurrent, severe with psychotic symptoms (principal); R45.851 Suicidal ideations; G47.00 Insomnia, unspecified; F17.210 Nicotine dependence, cigarettes, uncomplicated; F43.12 Post-traumatic stress disorder, chronic; F40.01 Agoraphobia with panic disorder; Z91.51 Personal history of suicidal behavior; E66.9 Obesity, unspecified; Z68.31 Body mass index [BMI] 31.0-31.9, adult; Z87.820 Personal history of traumatic brain injury; F10.10 Alcohol abuse, uncomplicated; F90.0 Attention-deficit hyperactivity disorder, predominantly inattentive type
CPT/HCPCS: 80048; 80306; 80307; 85025; 97150; 97165; 99285; 99291

== ENCOUNTER → 2021-03-17 08:41 | Outpatient (BNVA) | payer OTHER, SELFPAY | PROVIDERS: Visit Provider Counselor Mental Health | DX: F43.12 Post-traumatic stress disorder, chronic (principal); F33.9 Major depressive disorder, recurrent, unspecified; F41.1 Generalized anxiety disorder | CPT/HCPCS: 90834 ==

== ENCOUNTER → 2021-03-18 09:09 | Outpatient (BNVA) | payer OTHER, SELFPAY | PROVIDERS: Visit Provider Nurse Practitioner Psychiatric/Mental Health | DX: F33.3 Major depressive disorder, recurrent, severe with psychotic symptoms (principal); F43.10 Post-traumatic stress disorder, unspecified; F51.5 Nightmare disorder; F17.290 Nicotine dependence, other tobacco product, uncomplicated; Z87.820 Personal history of traumatic brain injury | CPT/HCPCS: 99214 ==

== ENCOUNTER → 2021-04-08 13:43 | Outpatient (BNVA) | payer OTHER, SELFPAY | PROVIDERS: Visit Provider Counselor Mental Health | DX: F33.3 Major depressive disorder, recurrent, severe with psychotic symptoms (principal); F43.10 Post-traumatic stress disorder, unspecified; F90.0 Attention-deficit hyperactivity disorder, predominantly inattentive type; F39 Unspecified mood [affective] disorder; F51.05 Insomnia due to other mental disorder | CPT/HCPCS: 90834 ==

== ENCOUNTER → 2021-04-15 14:47 | Outpatient (BNVA) | payer OTHER, SELFPAY | PROVIDERS: Visit Provider Counselor Mental Health | DX: F33.3 Major depressive disorder, recurrent, severe with psychotic symptoms (principal); F43.10 Post-traumatic stress disorder, unspecified; F90.0 Attention-deficit hyperactivity disorder, predominantly inattentive type; F39 Unspecified mood [affective] disorder; F51.05 Insomnia due to other mental disorder | CPT/HCPCS: 90834 ==

== ENCOUNTER → 2021-04-16 09:06 | Outpatient (BNVA) | payer OTHER, SELFPAY | PROVIDERS: Visit Provider Nurse Practitioner Psychiatric/Mental Health | DX: F33.3 Major depressive disorder, recurrent, severe with psychotic symptoms (principal); F51.5 Nightmare disorder; F43.10 Post-traumatic stress disorder, unspecified; F17.290 Nicotine dependence, other tobacco product, uncomplicated; Z87.820 Personal history of traumatic brain injury | CPT/HCPCS: 99214 ==

== ENCOUNTER → 2021-05-13 12:47 | Outpatient (BNVA) | payer OTHER, SELFPAY | PROVIDERS: Visit Provider Counselor Mental Health | DX: F33.3 Major depressive disorder, recurrent, severe with psychotic symptoms (principal); F43.10 Post-traumatic stress disorder, unspecified; F90.0 Attention-deficit hyperactivity disorder, predominantly inattentive type; F39 Unspecified mood [affective] disorder; F51.05 Insomnia due to other mental disorder | CPT/HCPCS: 90834 ==

== ENCOUNTER → 2021-05-21 11:42 | Outpatient (BNVA) | payer OTHER, SELFPAY | PROVIDERS: Visit Provider Nurse Practitioner Psychiatric/Mental Health | DX: F33.3 Major depressive disorder, recurrent, severe with psychotic symptoms (principal); F43.10 Post-traumatic stress disorder, unspecified; F17.210 Nicotine dependence, cigarettes, uncomplicated; F51.5 Nightmare disorder; Z79.899 Other long term (current) drug therapy | CPT/HCPCS: 99214 ==

== ENCOUNTER → 2021-05-29 08:47 | Outpatient (BNVA) | payer OTHER, SELFPAY | PROVIDERS: Visit Provider Counselor Mental Health | DX: F33.3 Major depressive disorder, recurrent, severe with psychotic symptoms (principal); F43.10 Post-traumatic stress disorder, unspecified; F90.0 Attention-deficit hyperactivity disorder, predominantly inattentive type; F39 Unspecified mood [affective] disorder; F51.05 Insomnia due to other mental disorder | CPT/HCPCS: 90834 ==

== ENCOUNTER → 2021-06-03 15:15 | Outpatient (BNVA) | payer OTHER, SELFPAY | PROVIDERS: Visit Provider Counselor Mental Health | DX: F33.3 Major depressive disorder, recurrent, severe with psychotic symptoms (principal); F43.10 Post-traumatic stress disorder, unspecified; F90.0 Attention-deficit hyperactivity disorder, predominantly inattentive type; F39 Unspecified mood [affective] disorder; F51.05 Insomnia due to other mental disorder | CPT/HCPCS: 90832 ==

== ENCOUNTER → 2021-06-17 08:57 | Outpatient (BNVA) | payer OTHER, SELFPAY | PROVIDERS: Visit Provider Counselor Mental Health | DX: F33.3 Major depressive disorder, recurrent, severe with psychotic symptoms (principal); F43.10 Post-traumatic stress disorder, unspecified; F90.0 Attention-deficit hyperactivity disorder, predominantly inattentive type; F39 Unspecified mood [affective] disorder; F51.05 Insomnia due to other mental disorder | CPT/HCPCS: 90832 ==

== ENCOUNTER 2021-06-24 10:54 | Inpatient (IN) | payer MEDICAID, SELFPAY ==
[2021-06-24] VITALS (10 sets, daily range): BP systolic 97–135; BP diastolic 54–88; PULSE 80–98; RESP 16–18; TEMP 36.9–37.3; O2SAT 94–100; BMI 33.6
--- NOTE | 2021-06-24 11:11 | CT_ITS ---
WS: [id number] CT FACIAL BONES TECHNIQUE: Noncontrast facial bones with coronal and sagittal reformatted images. CLINICAL INFORMATION: fall COMPARISON: None. DLP: 835.[address] scans at [facility] use at least one of these dose optimization techniques: automated e xposure control; mA and/or kV adjustment per patient size (includes targeted exams where dose is matc hed to clinical indication); or iterative reconstruction. FINDINGS: Mild soft tissue edema overlying the nasal bones. Slight irregularity at the distal nasal tuft. Tiny nondisplaced fracture through the LEFT nasal tip age indeterminant and may be chronic. Maxillary sinu ses are well aerated. Paranasal sinuses are well aerated. Normal zygoma. Normal mastoid air cells. Pterygoid plates are normal. No evidence of mandibular fracture dislocation. Orbits are normal in saray earance. No orbital fractures. Lateral orbits are normal. Dental artifact degrades some images. Karin l parapharyngeal fat. Normal posterior nasopharynx. Normal craniocervical junction. Normal C1-[address]/CT facial bones wo con* [id number] IMPRESSION: 1. Tiny nondisplaced fracture distal LEFT nasal tip. This is age indeterminant and may be chronic. 2. No other visualized facial fractures. 3. Paranasal sinuses and mastoid air cells are well aerated. 4. Normal posterior nasopharynx.
--- NOTE | 2021-06-24 11:11 | XR_ITS ---
WS: [id number] Portable AP upright chest, 06/24/2021 Clinical Data: L sided rib pain Comparison: Portable chest, 05/06/2020. Findings: No nodules, masses or effusions are seen. The heart is normal. The pulmonary vascularity is not increased. No pneumonia or pneumothorax is seen. XR/XR chest 1V portable [id number] Impression: Negative chest.
--- NOTE | 2021-06-24 11:11 | CT_ITS ---
WS: [id number] CT HEAD TECHNIQUE: Noncontrast CT of the head obtained from the skullbase to the vertex. CLINICAL INFORMATION: fall COMPARISON: None. DLP: 1073.[address] scans at [facility] use at least one of these dose optimization techniques: automated e xposure control; mA and/or kV adjustment per patient size (includes targeted exams where dose is matc hed to clinical indication); or iterative reconstruction. FINDINGS: No evidence of intracranial hemorrhage or mass effect. Ventricular system and basal cisterns are ferrara nt. No extra-axial fluid collections. No evidence of mass or mass effect. Normal zabala-white different iation. Incidental cerebellar tonsillar ectopia. Normal 4th ventricle. Paranasal sinuses and mastoid air cells are well aerated. .Normal visualized soft tissues. CT/CT head wo con* [id number] IMPRESSION: 1. No evidence of intracranial hemorrhage or mass effect. 2. Normal zabala-white differentiation. 3. Incidental cerebellar tonsillar ectopia. 4. No acute intracranial findings.
--- NOTE | 2021-06-24 11:12 | ECG_ITS ---
[facility] Test Date: 2021-06-24 Pat Name: Rafat Myers Department: Room: Gender: Male Surgical Services Tech: : 1990 Requested By: Sharath Ventura Order Number: [id number] Zulema MD: Gabbie Gomes M.D. Measurements Intervals [place] Rate: 82 P: 35 OR: 191 QRS: 62 QRSD: 106 T: 8 QT: 400 QTc: 469 Interpretive Statements SINUS RHYTHM Compared to ECG 10/02/2018 12:11:36 Sinus arrhythmia no longer present T-wave abnormality no longer present Possible ischemia no longer present Electronically Signed On 06-24-2021 14:40:28 MIGRATION SPECIALIST by Gabbie Gomes M.D. [email or web address]
--- NOTE | 2021-06-24 11:14 | ED_ITS ---
HPI - General Adult General: Chief complaint: Psychiatric Symptoms Stated complaint: SUICIDAL IDEATIONS Time Seen by Provider: 06/24/21 11:01 History of Present Illness: HPI: [31]yo patient w/ hx of depression BIBA an attempted suicide yesterday night. Patient reported cutting his L forearm, taking 90 tablets of 20mg of propanolol and 15 tablets of fluoxetine 40mg at 15:30 yesterday. Patient also fell on his face and reports bruises ot the face. On arrival, the patient is AAOx3 and cooperative with my evaluation. No focal complaints of chest pain, shortness of breath, palpitations, N/V, focal GI/ complaints. Currently denies HI. No complaints of hallucinations. Unclear last TDAP Onset: acute Duration: ongoing Location: home Severity: moderate Associated symptoms: Reports chest pain; Deny dyspnea, nausea, rash, palpitations or vomiting Review of Systems Const: Denies: fever(s) or chills Eyes: Denies: change in vision ENMT: Denies: mouth pain Card: Reports: chest pain; Denies: palpitations Resp: Denies: dyspnea or non-productive cough GI: Denies: abdominal pain, nausea, vomiting or diarrhea : Denies: dysuria Musc: Reports: other (+L forearm abrasions and lacerations); Denies: extremity pain Skin/Breast: Reports: new lesions (+L forearm lacerations, forehead abrasions); Denies: rash Neuro: Reports: other (+headache); Denies: weakness in extremities Psych: Reports: depression [place]/Lymph: Denies: easy bruising PFSH ED PFSH: Medical History Insomnia disorder, with non-sleep disorder mental comorbidity, recurrent Major depressive disorder, recurrent, severe with psychotic symptoms Mood disorder Nicotine dependence Nightmares associated with chronic post-traumatic stress disorder Panic disorder with agoraphobia Post traumatic stress disorder (PTSD) Psychiatric care Social History Smoking and tobacco status: current every day smoker Alcohol intake: current Alcohol intake frequency: holidays/special occasions only Physical Exam Const: COMMON NORMALS: alert HENMT: COMMON NORMALS: head/scalp not atraumatic (+facial bruises and forehead bruises) HEAD & SCALP: not atraumatic (+facial bruises and forehead bruises) MOUTH: moist mucous membranes not abnormal Eye: COMMON NORMALS: EOMs intact bilaterally and conjunctivae normal CONJUNCTIVA: Yes conjunctivae normal Neck/C-Spine: COMMON NORMALS: full ROM and supple Resp: COMMON NORMALS: normal respiratory effort and clear to auscultation bilaterally AUSCULTATION: clear to auscultation bilaterally Cardio: COMMON NORMALS: regular rate RATE: regular rate GI: COMMON NORMALS: Soft to palpation and non-tender PALPATION: Yes Soft to palpation Extremity: COMMON NORMALS: full ROM NARRATIVE EXTREMITY EXAM: +multiple superficial linear lacerations over the L forearm Neurovascular exam of the L forearm intact Neuro: SENSORIUM/ORIENTATION: Yes alert MOTOR EXAM: No Abnormal motor strength present and Other motor observations present (no focal motor deficits) Psych: COMMON NORMALS: speech normal SPEECH: Yes normal speech MOOD & AFFECT: Yes depressed mood Skin: NARRATIVE SKIN EXAM: +multiple facial and scalp bruises +multiple L forearm lacerations Course 2 Vital Signs: Vital signs: Vital Signs Temperature 98.2 F 06/25/21 06:00 Pulse Rate 93 06/25/21 06:00 Respiratory Rate 16 06/25/21 06:00 Blood Pressure 112/78 06/25/21 06:00 Pulse Oximetry 96 06/25/21 06:00 MDM - General Adult Medical Decision Making [31]yo patient w/ hx of depression and SI presenting for a suicide attempt. HDS, exam within normal limit Thoughts are linear and organized, and the patient has no AH/VH, or HI. Clinically the patient displays no overt toxidrome; they are well appearing, with low suspicion for toxic ingestion given history and exam. Symptoms unlikely 2/2 anemia, hypothyroidism, infection, or ICH. Case was discussed with [place] [facility] [facility] which recommended no further observation since patient is >12 hrs from ingestion of medications. Workup: CBC, CMP, Lipase, salicylate/tylenol, UDS, CT head/CT face, XR chest, EKG Lab findings: wnl, +benzo in urine Incidental findings of mild nasal fracture discussed extensively with patient. Patient received a copy of the CT report with the documented findings. Patient is instructed to follow up urgently with specialists. I have given patient follow up with our case finishing machine adjuster to be seen by our outpatient ENT for nasal fracture. Patient aware of a call from our case finishing machine adjuster to schedule for appointment(s) and verbalizes understanding of the importance of following up. [12:30pm] On reassessment, labs and workup wnl. Patient is hemodynamically stable with no acute medical complaints. Since patient's lacerations can still be closed within 24 hrs, I offered primary closure of these lacerations. However, patient declined. I discussed the risk of leaving the superficial laceration open as patient may have poor cosmesis and lead to scarring. Patient verbalizes everything discussed and still reiterates desire to not have his lacerations closed. Case discussed with psychiatric provider Dr. Rosa at [facility] psych inpatient with recommendation for admission Disposition: Psych Lab Data : 06/24/21 10:45 06/24/21 10:45 Radiology Impressions Chest X-Ray 06/24/21 11:11 Impression: Negative chest. Face CT 06/24/21 11:11 IMPRESSION: 1. Tiny nondisplaced fracture distal LEFT nasal tip. This is age indeterminant and may be chronic. 2. No other visualized facial fractures. 3. Paranasal sinuses and mastoid air cells are well aerated. 4. Normal posterior nasopharynx. Head CT 06/24/21 11:11 IMPRESSION: 1. No evidence of intracranial hemorrhage or mass effect. 2. Normal zabala-white differentiation. 3. Incidental cerebellar tonsillar ectopia. 4. No acute intracranial findings. Laboratory Results WBC 15.4 10^3/uL (4.0-10.0) H 06/24/21 10:45 RBC 4.77 10^6/uL (4.1-5.3) 06/24/21 10:45 Hgb 15.6 g/dL (11.7-16.6) 06/24/21 10:45 Hct 42.5 % (42.0-52.0) 06/24/21 10:45 MCV 89.1 fl (80-94) 06/24/21 10:45 MCH 32.7 pg (28.0-34.0) 06/24/21 10:45 MCHC 36.7 g/dL (30.0-36.0) H 06/24/21 10:45 RDW 12.5 % (12.1-15.1) 06/24/21 10:45 Plt Count 320 10^3/cmm (130-400) 06/24/21 10:45 MPV 10.6 fL (7.4-10.4) H 06/24/21 10:45 Neut % (Auto) 86.2 % 06/24/21 10:45 Lymph % (Auto) 7.9 % 06/24/21 10:45 [place] % (Auto) 5.3 % 06/24/21 10:45 Eos % (Auto) 0.0 % 06/24/21 10:45 Baso % (Auto) 0.1 % 06/24/21 10:45 Neut # (Auto) 13.26 10^3/uL (1.8-7.7) H 06/24/21 10:45 Lymph # (Auto) 1.2 10^3/uL (0.8-4.8) 06/24/21 10:45 [place] # (Auto) 0.8 10^3/uL (0.2-0.9) 06/24/21 10:45 Eos # (Auto) 0.0 10^3/uL (0.0-0.8) 06/24/21 10:45 Baso # (Auto) 0.0 10^3/uL (0.0-0.1) 06/24/21 10:45 Nucleated RBC % (auto) 0 % 06/24/21 10:45 Nucleated RBCs # 0.0 /100WBC 06/24/21 10:45 Sodium 137 mmol/L (136-145) 06/24/21 10:45 Potassium 4.8 mmol/L (3.5-5.1) 06/24/21 10:45 Chloride 102 mmol/L (98-107) 06/24/21 10:45 Carbon Dioxide 22 mmol/L (22-29) 06/24/21 10:45 Anion Gap 17.8 (5-19) 06/24/21 10:45 BUN 16 mg/dL (6-20) 06/24/21 10:45 Creatinine 1.1 mg/dL (0.7-1.2) 06/24/21 10:45 GFR Calculation 77.6 mL/min (90-130) L 06/24/21 10:45 Glucose 119 mg/dL (65-115) H 06/24/21 10:45 Calculated Osmolality 286 mOsm/kg (285-295) 06/24/21 10:45 Calcium 9.2 mg/dL (8.5-10.5) 06/24/21 10:45 Total Bilirubin 1.2 mg/dL (0.15-1.2) 06/24/21 10:45 AST 42 U/L (0-40) H 06/24/21 10:45 ALT 33 U/L (0-41) 06/24/21 10:45 Alkaline Phosphatase 89 IU/L (40-130) 06/24/21 10:45 Total Protein 7.8 g/dL (6.6-8.7) 06/24/21 10:45 Albumin 4.7 g/dL (3.5-5.2) 06/24/21 10:45 Globulin 3.1 g/dL (1.3-4.6) 06/24/21 10:45 Lipase 14 U/L (13-60) 06/24/21 10:45 Salicylates < 0.3 mg/dL (3-10) L 06/24/21 10:45 Acetaminophen < 5.0 ug/mL (10-30) L 06/24/21 10:45 Imaging Data Other Imaging: Radiologist's impression: [address] [address] [address] Scan Report Signed Patient: Rafat Myers II Unit #: [id number] : 1990 Age/Sex: 31 / M ADM Date: 06/24/21 Loc: ER Room/Bed: Attending Dr: Ordering Provider/Ordering MD: Sharath Ventura MD Date of Service: 06/24/21 Procedure(s): CT head wo con* [id number] Accession Number(s): [id number] Report Number: [id number] WS: [id number] CT HEAD TECHNIQUE: Noncontrast CT of the head obtained from the skullbase to the vertex. CLINICAL INFORMATION: fall COMPARISON: None. DLP: 1073.[address] scans at [facility] use at least one of these dose optimization techniques: automated exposure control; mA and/or kV adjustment per patient size (includes targeted exams where dose is matched to clinical indication); or iterative reconstruction. FINDINGS: No evidence of intracranial hemorrhage or mass effect. Ventricular system and basal cisterns are patent. No extra-axial fluid collections. No evidence of mass or mass effect. Normal zabala-white differentiation. Incidental cerebellar tonsillar ectopia. Normal 4th ventricle. Paranasal sinuses and mastoid air cells are well aerated. .Normal visualized soft tissues. CT/CT head wo con* [id number] IMPRESSION: ? 1.? No evidence of intracranial hemorrhage or mass effect. 2.? Normal zabala-white differentiation. 3.? Incidental cerebellar tonsillar ectopia. 4.? No acute intracranial findings. ? Dictated By: Yrn Guido MD Signed By: Yrn Guido MD Signed Date/Time: 06/24/21 1317 DD/ [address] [address] [address] Scan Report Signed Patient: Rafat Myers II Unit #: [id number] : 1990 Age/Sex: 31 / M ADM Date: 06/24/21 Loc: ER Room/Bed: Attending Dr: Ordering Provider/Ordering MD: Sharath Ventura MD Date of Service: 06/24/21 Procedure(s): CT facial bones wo con* [id number] Accession Number(s): [id number] Report Number: [id number] WS: [id number] CT FACIAL BONES TECHNIQUE: Noncontrast facial bones with coronal and sagittal reformatted images. CLINICAL INFORMATION: fall COMPARISON: None. DLP: 835.[address] scans at [facility] use at least one of these dose optimization techniques: automated exposure control; mA and/or kV adjustment per patient size (includes targeted exams where dose is matched to clinical indication); or iterative reconstruction. FINDINGS: Mild soft tissue edema overlying the nasal bones. Slight irregularity at the distal nasal tuft. Tiny nondisplaced fracture through the LEFT nasal tip age indeterminant and may be chronic. Maxillary sinuses are well aerated. Paranasal sinuses are well aerated. Normal zygoma. Normal mastoid air cells. Pterygoid plates are normal. No evidence of mandibular fracture dislocation. Orbits are normal in appearance. No orbital fractures. Lateral orbits are normal. Dental artifact degrades some images. Normal parapharyngeal fat. Normal posterior nasopharynx. Normal craniocervical junction. Normal C1-[address]/CT facial bones wo con* [id number] IMPRESSION: ? 1.? Tiny nondisplaced fracture distal LEFT nasal tip. This is age indeterminant and may be chronic. 2.? No other visualized facial fractures. 3.? Paranasal sinuses and mastoid air cells are well aerated. 4.? Normal posterior nasopharynx. ? Dictated By: Yrn Guido MD Signed By: Yrn Guido MD Signed Date/Time: 06/24/21 1324 DD/ [address] [address] XRay Report Signed Patient: Rafat Myers II Unit #: [id number] : 1990 Age/Sex: 31 / M ADM Date: 06/24/21 Loc: ER Room/Bed: Attending Dr: Ordering Provider/Ordering MD: Sharath Ventura MD Date of Service: 06/24/21 Procedure(s): XR chest 1V portable [id number] Accession Number(s): [id number] Report Number: [id number] WS: [id number] Portable AP upright chest, 06/24/2021 Clinical Data: L sided rib pain Comparison: Portable chest, 05/06/2020. Findings: No nodules, masses or effusions are seen. The heart is normal. The pulmonary vascularity is not increased. No pneumonia or pneumothorax is seen. XR/XR chest 1V portable [id number] Impression: Negative chest. ? Dictated By: Dalila French MD Signed By: Dalila French MD Signed Date/Time: 06/24/21 1313 DD/ 1312 Discharge Plan Discharge Patient Disposition: Admitted As Inpatient Admit Provider: Brent Rosa Clinical Impression: Intentional overdose, Forearm laceration, Depression with suicidal ideation, Closed fracture nasal bone Condition: Stable Coding Level of Care Code ED Electrical Maintenance Supervisor for Chg Fwd Exam Comprehensive
[2021-06-24] MEDS: tetanus-dipt-pertussis 0.5 mL SDV IM (11:31)
[2021-06-24 11:34] LABS: Basophils % 0.1 %; Hematocrit 42.5 % (42.0-52.0); Hemoglobin 15.6 g/dL (11.7-16.6); Lymphocytes # 1.2 10^3/uL (0.8-4.8); Lymphocytes % 7.9 %; Mean Corpuscular HGB Conc 36.7 g/dL (30.0-36.0); Mean Corpuscular Hemoglobin 32.7 pg (28.0-34.0); Mean Corpuscular Volume 89.1 fl (80-94); Mean Platelet Volume 10.6 fL (7.4-10.4); Monocytes # 0.8 10^3/uL (0.2-0.9); Monocytes % 5.3 %; Neutrophils # 13.26 10^3/uL (1.8-7.7); Neutrophils % 86.2 %; Nucleated Red Blood Cells % 0 %; Platelet Count 320 10^3/cmm (130-400); Red Blood Count 4.77 10^6/uL (4.1-5.3); Red Cell Distribution Width 12.5 % (12.1-15.1); White Blood Count 15.4 10^3/uL (4.0-10.0)
[2021-06-24 12:07] LABS: Alanine Aminotransferase 33 U/L (0-41); Albumin Level 4.7 g/dL (3.5-5.2); Alkaline Phosphatase 89 IU/L (40-130); Anion Gap 17.8 (5-19); Aspartate Amino Transferase 42 U/L (0-40); Blood Urea Nitrogen 16 mg/dL (6-20); Calcium 9.2 mg/dL (8.5-10.5); Carbon Dioxide 22 mmol/L (22-29); Chloride 102 mmol/L (98-107); Globulin 3.1 g/dL (1.3-4.6); Glomerular Filtration Rate 77.6 mL/min (90-130); Glucose 119 mg/dL (65-115); Lipase 14 U/L (13-60); Osmolality Calculated 286 mOsm/kg (285-295); Potassium 4.8 mmol/L (3.5-5.1); Sodium 137 mmol/L (136-145); Total Bilirubin 1.2 mg/dL (0.15-1.2); Total Protein 7.8 g/dL (6.6-8.7)
[2021-06-24 12:08] LABS: Acetaminophen < 5.0 ug/mL (10-30); Salicylate < 0.3 mg/dL (3-10)
[2021-06-24] MEDS: sodium chloride 0.9% 1,000 ML 999 ML IV (12:20)
--- NOTE | 2021-06-24 13:10 | PC.NURSE ---
Pt provided lunch and drink at this time.
[2021-06-24 13:34] LABS: Amphetamines Screen Urine Negative (Negative); Barbiturates Screen Urine Negative (Negative); Benzodiazepines Screen Urine Positive (Negative); Cocaine Screen Urine Negative (Negative); Opiate Screen Urine Negative (Negative); PCP Screen Urine Negative (Negative); THC Screen Urine Negative (Negative)
[2021-06-24] MEDS: nicotine 2 mg Gum BUCCAL ×2 (17:24→19:07)
[2021-06-24] MEDS: acetaminophen 325 mg Tablet 650 MG PO (18:34)
[2021-06-24] MEDS: trazodone 50 mg Tablet PO (20:19)
--- NOTE | 2021-06-25 02:49 | PC.NURSE ---
At 2019 the patient requested something to help him sleep. Trazadone 50 mg po given. Medication has been effective as patient continues to sleep.
[2021-06-25 06:00] VITALS: BP 112/78; PULSE 93; RESP 16; TEMP 36.8; O2SAT 96
[2021-06-25] MEDS: nicotine 2 mg Gum BUCCAL ×2 (06:18→19:05)
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
[2021-06-25] MEDS: paliperidone 3 MG, paliperidone 6 MG 9 MG PO (08:57)
[2021-06-25] MEDS: propranolol 20 mg Tablet PO ×3 (08:57→20:18)
[2021-06-25] MEDS: fluoxetine 20 mg Capsule 80 MG PO (08:57)
[2021-06-25] MEDS: acetaminophen 325 mg Tablet 650 MG PO (09:34)
--- NOTE | 2021-06-25 13:33 | DCPLANNER ---
Addendum entered by Rosa Keyes 07/21/21 06:26: ehs manager was notified by [facility] ENT clinic, that when clinic called patient to schedule appointment, that patient declined appointment at this time. Original Note: ehs manager had message to schedule a follow up appointment for patient with ENT. ehs manager emailed patients information to Joan Shipley and Amy at [facility] General Surgery / ENT clinic. Patients information will be printed and reviewed. Clinic will call patient with appointment information.
[2021-06-25 13:56] VITALS: BP 106/64; PULSE 77; RESP 17; TEMP 36.6; O2SAT 98
[2021-06-25 19:40] VITALS: BP 117/73; PULSE 70; RESP 17; TEMP 36.8; O2SAT 98
[2021-06-25] MEDS: prazosin 5 mg Capsule 10 MG PO (20:18)
[2021-06-25] MEDS: blistex lip oint 7 gm Tube 1 APPLIC TOPICAL (20:29)
[2021-06-26 06:00] VITALS: BP 101/66; PULSE 73; RESP 18; TEMP 36.4; O2SAT 96
[2021-06-26] MEDS: nicotine 2 mg Gum BUCCAL (07:42)
[2021-06-26] MEDS: fluoxetine 20 mg Capsule 80 MG PO (09:11)
[2021-06-26] MEDS: paliperidone 3 MG, paliperidone 6 MG 9 MG PO (09:11)
[2021-06-26] MEDS: propranolol 20 mg Tablet PO ×3 (09:11→21:27)
--- NOTE | 2021-06-26 12:12 | P.NPUPN_ITS ---
Subjective NPU Subjective: Interval history: He says that he is doing much better. He attributes that to being here and also possibly the overdose relieving the pressure. He says that has happened before that he feels much better after he overdoses just because he has done something. He did not have any side effects from the Prozac 80 mg this morning. He also thinks that just knowing that it was increased is helping him feel better. That is why he went to the doctor recently as to get his medication increased. He is optimistic that that will help. He understands that he needs to be here for a few days after attempting suicide. He forgot to ask for trazodone last night and did not sleep very well. Mental Status Exam MSE Comments: This is a 31-year old overweight male who appears approximately his stated age and is in no acute distress. He is dressed in hospital scrubs. He is pleasant and cooperative with the evaluation. Eye contact is good. Grooming is fair. psychomotor activity is increased. He is somewhat tremulous and constantly fidgeting Speech is at a regular rate and rhythm, normal volume, good articulation, not pressured. Alert, oriented X3 Attention and concentration appears to be intact. Memory is intact Mood is depressed but better. Affect is mildly dysphoric. Thought process is logical and goal-directed. Thought content: Denies auditory and visual hallucinations. No delusions or paranoia are noted. He denies suicidal ideation. he denies homicidal ideation. Fund of knowledge is average. Insight and judgment appear to be fair. Impulse control is fairly good he has resisted substance abuse surprisingly well. Cognition: Patient Appearance: Appropriate Level of Consciousness: Awake, Alert and Appropriate Patient Cognition Impaired: No Ability to Follow Directions: Good Patient Orientation (long list): Person, Place, Time, Name, Age, Birthday and Year Comprehension Ability: No Impairment Hallucination Type: None Delusion Description: Not Present Thought Process: Appropriate Affect: Affect Description: Appropriate and Calm Depressive Symptoms: Difficulty Sleeping and Hopelessness Behavior: Patient Behavior: Appropriate and Cooperative Speech Pattern: Appropriate and Clear Vitals/I&O/Wt Last Vital Signs Temp 97.5 F L 06/26/21 06:00 Pulse 73 06/26/21 06:00 Resp 18 06/26/21 06:00 BP 101/66 06/26/21 06:00 Pulse Ox 96 06/26/21 06:00 Data NPU : 06/24/21 10:45 06/24/21 10:45 A&P Assessment and plan (1) Intentional overdose: Status: Acute (2) Forearm laceration: Status: Acute (3) Depression with suicidal ideation: Status: Acute (4) Post traumatic stress disorder (PTSD): Status: Chronic (5) 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 Plan: 1. Continue current medication. Except increase the Prozac to 80 mg and trazodone to 100 mg at bedtime. continue prazosin 10 mg, Invega 9 mg, propranolol 20 mg 3 times daily hydroxyzine 50 mg 3 times daily as needed. 2. Continue every 15 minute checks for safety. 3. Encourage individual, group and milieu therapies. 4. Encourage sober living treatment after discharge at the highest level of care to which he is willing to commit. 5. We will monitor for safety for himself in the community prior to discharge. Involuntary Hold Information 2 96 Hour Hold: 96 Hour Involuntary Admission: No 96 Hour Hold Ending Date: 08/01/20 96 Hour Hold Ending Time: 12:01 Attestations NPU Medical Necessity Statement*: Inpatient hospitalization is medically necessary and the clinically appropriate intervention at this time. We will initiate medications and make changes as indicated. Coding Level of Care Code Acute Sharepoint Architect for Irwin Ventura Diagnoses Intentional overdose T50.902A Forearm laceration S51.819A Depression with suicidal ideation F32.A; R45.851 Post traumatic stress disorder (PTSD) F43.10 Nightmares associated with chronic post-traumatic stress disorder F51.5; F43.10
[2021-06-26 13:45] VITALS: BP 114/77; PULSE 75; RESP 18; TEMP 37.1; O2SAT 98
[2021-06-26 20:11] VITALS: BP 116/75; PULSE 74; RESP 16; TEMP 37; O2SAT 96
[2021-06-26] MEDS: prazosin 5 mg Capsule 10 MG PO (21:27)
[2021-06-26] MEDS: trazodone 100 mg Tablet PO (21:48)
[2021-06-27 06:00] VITALS: BP 105/64; PULSE 80; RESP 17; O2SAT 96
[2021-06-27] MEDS: fluoxetine 20 mg Capsule 80 MG PO (08:33)
[2021-06-27] MEDS: paliperidone 3 MG, paliperidone 6 MG 9 MG PO (08:34)
[2021-06-27] MEDS: propranolol 20 mg Tablet PO ×3 (08:34→20:47)
[2021-06-27] MEDS: nicotine 2 mg Gum BUCCAL ×3 (08:34→18:13)
--- NOTE | 2021-06-27 08:52 | W.PM.NPUPNS ---
Subjective NPU Subjective: Interval history: He says that his anxiety is manageable. It is improved. He is optimistic that the increase Prozac will help significantly. He said that 40 mg had previously helped but stopped working. He has a paronychia on the finger on his left hand. He said that he would prefer to soak it in warm water 4 times a day rather than take antibiotics. He is agreeable to stay until Tuesday. Mental Status Exam MSE Comments: This is a 31-year old overweight male who appears approximately his stated age and is in no acute distress. He is dressed in hospital scrubs. He is pleasant and cooperative with the evaluation. Eye contact is good. Grooming is fair. psychomotor activity is increased. He is somewhat tremulous and constantly fidgeting Speech is at a regular rate and rhythm, normal volume, good articulation, not pressured. Alert, oriented X3 Attention and concentration appears to be intact. Memory is intact Mood is depressed but better. Affect is mildly dysphoric. Thought process is logical and goal-directed. Thought content: Denies auditory and visual hallucinations. No delusions or paranoia are noted. He denies suicidal ideation. he denies homicidal ideation. Fund of knowledge is average. Insight and judgment appear to be fair. Impulse control is fairly good he has resisted substance abuse surprisingly well. Cognition: Patient Appearance: Appropriate Level of Consciousness: Awake, Alert and Appropriate Patient Cognition Impaired: No Ability to Follow Directions: Good Patient Orientation (long list): Person, Place, Time, Name, Age and Year Comprehension Ability: No Impairment Hallucination Type: None Delusion Description: Not Present Thought Process: Appropriate Affect: Affect Description: Appropriate Depressive Symptoms: Difficulty Sleeping and Hopelessness Behavior: Patient Behavior: Appropriate Speech Pattern: Appropriate Vitals/I&O/Wt Last Vital Signs Temp 98.6 F 06/26/21 20:11 Pulse 80 06/27/21 06:00 Resp 17 06/27/21 06:00 BP 105/64 06/27/21 06:00 Pulse Ox 96 06/27/21 06:00 Data NPU : 06/24/21 10:45 06/24/21 10:45 A&P Assessment and plan (1) Intentional overdose: Status: Acute (2) Forearm laceration: Status: Acute (3) Depression with suicidal ideation: Status: Acute (4) Post traumatic stress disorder (PTSD): Status: Chronic (5) 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 Plan: 1. Continue current medication. Except increase the Prozac to 80 mg and trazodone to 100 mg at bedtime. continue prazosin 10 mg, Invega 9 mg, propranolol 20 mg 3 times daily hydroxyzine 50 mg 3 times daily as needed. 2. Continue every 15 minute checks for safety. 3. Encourage individual, group and milieu therapies. 4. Encourage sober living treatment after discharge at the highest level of care to which he is willing to commit. 5. We will monitor for safety for himself in the community prior to discharge. Involuntary Hold Information 96 Hour Hold: 96 Hour Involuntary Admission: No 96 Hour Hold Ending Date: 08/01/20 96 Hour Hold Ending Time: 12:01 Attestations NPU Medical Necessity Statement*: Inpatient hospitalization is medically necessary and the clinically appropriate intervention at this time. We will initiate medications and make changes as indicated. Coding Level of Care Code Acute Roll Grinder for Irwin Fwd Diagnoses Intentional overdose T50.902A Forearm laceration S51.819A Depression with suicidal ideation F32.A; R45.851 Post traumatic stress disorder (PTSD) F43.10 Nightmares associated with chronic post-traumatic stress disorder F51.5; F43.10
[2021-06-27 14:00] VITALS: BP 106/66; PULSE 85; RESP 16; TEMP 36.7; O2SAT 98
[2021-06-27] MEDS: prazosin 5 mg Capsule 10 MG PO (20:47)
[2021-06-27 21:19] VITALS: BP 116/74; PULSE 74; RESP 18; TEMP 36.8; O2SAT 98
[2021-06-27] MEDS: trazodone 100 mg Tablet PO (21:20)
[2021-06-28] MEDS: nicotine 2 mg Gum BUCCAL ×2 (05:42→08:53)
[2021-06-28 06:00] VITALS: BP 102/68; PULSE 84; RESP 17; TEMP 36.4; O2SAT 95
[2021-06-28] MEDS: fluoxetine 20 mg Capsule 80 MG PO (08:53)
[2021-06-28] MEDS: propranolol 20 mg Tablet PO ×2 (08:53→14:50)
[2021-06-28] MEDS: paliperidone 3 MG, paliperidone 6 MG 9 MG PO (08:53)
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
[2021-06-28 14:00] VITALS: BP 112/69; PULSE 72; RESP 16; TEMP 36.6; O2SAT 98
[2021-06-28 15:24] VITALS: BP 112/69; PULSE 72; RESP 16; TEMP 36.6; O2SAT 98
--- NOTE | 2021-06-28 15:37 | PC.NURSE ---
TEAM HAS DETERMINED THAT PATIENT IS STABLE TO DC TODAY . DENIES SI/HI AND AVH. MEDICATIONS SENT TO [facility]. DISCHARGING WITH FAMILY MEMBER. ALL PERSONAL BELONGINGS RETURNED TO PATIENT AT [place].
== END 2021-06-28 15:39 | disposition home or self-care (01) | DRG 918 ==
LOC: ER 11:20 → NP 14:27
PROVIDERS: Admitting Provider Psychiatry & Neurology Psychiatry; Emergency Provider Emergency Medicine; Visit Provider Psychiatry & Neurology Psychiatry
DX: T42.4X2A Poisoning by benzodiazepines, intentional self-harm, initial encounter (principal); F33.9 Major depressive disorder, recurrent, unspecified; R45.851 Suicidal ideations; F17.210 Nicotine dependence, cigarettes, uncomplicated; F43.12 Post-traumatic stress disorder, chronic; F41.0 Panic disorder [episodic paroxysmal anxiety]; F41.9 Anxiety disorder, unspecified; S51.819A Laceration without foreign body of unspecified forearm, initial encounter; X58.XXXA Exposure to other specified factors, initial encounter; L03.012 Cellulitis of left finger
CPT/HCPCS: 70450; 70486; 71045; 80053; 80306; 80307; 83690; 85025; 90471; 90715; 93005; 97150; 97165; 99285; J7030

== ENCOUNTER → 2021-07-09 09:05 | Outpatient (BNVA) | payer MEDICAID, SELFPAY | PROVIDERS: Visit Provider Nurse Practitioner Psychiatric/Mental Health | DX: F33.3 Major depressive disorder, recurrent, severe with psychotic symptoms (principal); F51.5 Nightmare disorder; F43.10 Post-traumatic stress disorder, unspecified; F17.210 Nicotine dependence, cigarettes, uncomplicated; F17.290 Nicotine dependence, other tobacco product, uncomplicated | CPT/HCPCS: 99214 ==

== ENCOUNTER → 2021-07-16 13:53 | Outpatient (BNVA) | payer OTHER, SELFPAY | PROVIDERS: Visit Provider Counselor Mental Health | DX: F33.3 Major depressive disorder, recurrent, severe with psychotic symptoms (principal); F43.10 Post-traumatic stress disorder, unspecified; F90.0 Attention-deficit hyperactivity disorder, predominantly inattentive type; F39 Unspecified mood [affective] disorder; F51.05 Insomnia due to other mental disorder | CPT/HCPCS: 90834 ==

== ENCOUNTER → 2021-10-19 13:40 | Outpatient (BNVA) | payer OTHER, SELFPAY | PROVIDERS: Visit Provider Counselor Mental Health | DX: F33.3 Major depressive disorder, recurrent, severe with psychotic symptoms (principal); F43.10 Post-traumatic stress disorder, unspecified; F90.0 Attention-deficit hyperactivity disorder, predominantly inattentive type; F39 Unspecified mood [affective] disorder; F51.05 Insomnia due to other mental disorder | CPT/HCPCS: 90834 ==

== ENCOUNTER → 2021-10-26 15:01 | Outpatient (BNVA) | payer OTHER, SELFPAY | PROVIDERS: Visit Provider Counselor Mental Health | DX: F33.3 Major depressive disorder, recurrent, severe with psychotic symptoms (principal); F43.10 Post-traumatic stress disorder, unspecified; F90.0 Attention-deficit hyperactivity disorder, predominantly inattentive type; F39 Unspecified mood [affective] disorder; F51.05 Insomnia due to other mental disorder | CPT/HCPCS: 90834 ==

== ENCOUNTER → 2021-11-17 12:27 | Outpatient (BNVA) | payer MEDICAID, SELFPAY | PROVIDERS: Referring Provider Nurse Practitioner Psychiatric/Mental Health; Visit Provider Specialist | DX: F07.81 Postconcussional syndrome (principal); F43.10 Post-traumatic stress disorder, unspecified; F60.3 Borderline personality disorder | CPT/HCPCS: 99204 ==

== ENCOUNTER → 2021-11-23 14:17 | Outpatient (BNVA) | payer MEDICAID, SELFPAY | PROVIDERS: Referring Provider Specialist; Visit Provider Specialist | DX: F07.81 Postconcussional syndrome (principal) | CPT/HCPCS: 95816 ==

== ENCOUNTER → 2021-12-24 14:47 | Outpatient (BNVA) | payer OTHER, SELFPAY | PROVIDERS: Visit Provider Registered Nurse Neonatal Intensive Care | DX: R50.9 Fever, unspecified (principal) | CPT/HCPCS: 87426 ==

== ENCOUNTER → 2022-02-09 09:37 | Outpatient (BNVA) | payer MEDICAID, SELFPAY | PROVIDERS: PCP Family Medicine; Visit Provider Specialist | DX: R41.3 Other amnesia (principal); V47 Car occupant injured in collision with fixed or stationary object; F07.81 Postconcussional syndrome | CPT/HCPCS: 99213 ==

== ENCOUNTER 2023-02-16 10:38 | Emergency (ER) | payer MEDICARE, MEDICAID, SELFPAY ==
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
[2023-02-16 11:22] VITALS: BP 121/80; PULSE 83; RESP 18; TEMP 36.8; O2SAT 99; BMI 34.4
[2023-02-16 11:42] VITALS: BP 129/76; PULSE 73; RESP 20; O2SAT 100
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
[2023-02-16] MEDS: ketorolac 60 mg/2 mL INJ IM (12:12)
[2023-02-16 13:44] VITALS: BP 122/78; PULSE 66; RESP 16; O2SAT 99
== END 2023-02-16 13:45 | disposition home or self-care (01) ==
PROVIDERS: Emergency Provider Family Medicine; PCP Family Medicine
DX: S22.32XA Fracture of one rib, left side, initial encounter for closed fracture (principal); W07.XXXA Fall from chair, initial encounter
CPT/HCPCS: 71045; 71101; 96372; 99284; J1885

== ENCOUNTER 2024-05-20 21:15 | Emergency (ER) | payer MEDICARE, MEDICAID, SELFPAY ==
[2024-05-20] VITALS (7 sets, daily range): BP systolic 93–132; BP diastolic 55–90; PULSE 103–141; RESP 22–34; TEMP 36.8; O2SAT 94–98; BMI 28.1
--- NOTE | 2024-05-20 21:36 | ECG_ITS ---
[employer] [employer] 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 Measurements Intervals [place] Rate: 117 P: 71 IA: 169 QRS: 55 QRSD: 90 T: 41 QT: 327 QTc: 457 Interpretive Statements SINUS TACHYCARDIA ST ELEVATION, PROBABLY EARLY REPOLARIZATION [ST ELEVATION WITH NORMALLY INFLECTED T-WAVE] ABNORMAL RHYTHM ECG Compared to ECG 06/24/2021 11:20:37 ST (T wave) deviation now present Early repolarization now present Sinus rhythm no longer present Electronically Signed On 05-22-2024 23:57:26 COLLEGE PROFESSOR by Sherwin Lewis M.D. [email or web address]
[2024-05-20] MEDS: haloperidol inj 5 mg/mL INJ 1 mL IVP (21:43)
[2024-05-20] MEDS: LORazepam 2 mg/mL INJ 1 mL IVP (21:43)
[2024-05-20 21:46] LABS: Basophils # 0.1 10^3/uL (0.0-0.1); Basophils % 0.3 %; Eosinophils % 0.1 %; Hematocrit 42.9 % (37-53); Lymphocytes # 1.7 10^3/uL (0.8-4.8); Lymphocytes % 11.2 %; Mean Corpuscular HGB Conc 37.3 g/dL (30-55); Mean Corpuscular Hemoglobin 33.6 pg (27-33); Mean Corpuscular Volume 90.1 fl (82-101); Mean Platelet Volume 9.9 fL (7.4-10.4); Monocytes # 0.9 10^3/uL (0.2-0.9); Monocytes % 5.8 %; Neutrophils # 12.62 10^3/uL (1.8-7.7); Neutrophils % 82.2 %; Nucleated Red Blood Cells % 0 %; Platelet Count 234 10^3/cmm (157-399); Red Blood Count 4.76 10^6/uL (3.85-5.65); Red Cell Distribution Width 13.5 % (12.1-15.1); White Blood Count 15.35 10^3/uL (3.29-11.43)
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
[2024-05-20 22:05] LABS: Acetaminophen < 5.0 ug/mL (10-30); Alanine Aminotransferase 46 U/L (0-41); Albumin Level 4.3 g/dL (3.5-5.2); Alcohol Level < 10 mg/dL (0-10); Alkaline Phosphatase 91 U/L (40-130); Anion Gap 29.4 (5-19); Aspartate Amino Transferase 86 U/L (0-40); Blood Urea Nitrogen 17 mg/dL (6-20); Calcium 9.6 mg/dL (8.5-10.5); Carbon Dioxide 16 mmol/L (22-29); Chloride 97 mmol/L (98-107); Creatinine Clr Calc Pharmacy 81.8995; Globulin 3.1 g/dL (1.3-4.6); Glomerular Filtration Rate 63.2 mL/min (90-130); Glucose 78 mg/dL (65-115); Osmolality Calculated 288 mOsm/kg (285-295); Potassium 3.4 mmol/L (3.5-5.1); Salicylate 1.4 mg/dL (3-10); Sodium 139 mmol/L (136-145); Total Bilirubin 2.2 mg/dL (0.15-1.2); Total Protein 7.4 g/dL (6.6-8.7)
[2024-05-20 22:34] LABS: Bilirubin Urine 1+ (Negative); Blood Urine 1+ (Negative); Glucose Urine UA Trace (Normal); Ketones Urine 4+ (Negative); Leukocyte Esterase Urine Trace (Negative); Nitrate Urine Negative (Negative); Protein Urine 3+ (Negative); Specific Gravity, Urine 1.027 (1.005-1.030); Urine Appearance Cloudy (CLEAR); pH Urine 5.5 (5-7)
[2024-05-20] MEDS: sodium chloride 0.9% 1,000 ML 999 ML IV ×2 (22:34→23:20)
[2024-05-20 22:40] LABS: Add Urine Microscopic? YES; Bacteria Urine None Seen /hpf; Hyaline Casts Urine 35.98 /lpf; RBC Urine 0-2 /hpf (0-2); Universal Test for UA Present (0)
[2024-05-20 22:42] LABS: Amphetamines Screen Urine Positive (Negative); Barbiturates Screen Urine Negative (Negative); Benzodiazepines Screen Urine Positive (Negative); Cocaine Screen Urine Negative (Negative); Opiate Screen Urine Negative (Negative); PCP Screen Urine Negative (Negative); THC Screen Urine Negative (Negative)
[2024-05-20 22:47] LABS: Lactic Sepsis W/Reflex 6.7 mmol/L (0.5-2.2)
[2024-05-20 22:57] LABS: Urine Color Orange (Yellow)
[2024-05-20 22:58] LABS: Add Urine Culture? No
[2024-05-21 00:14] LABS: Reflex Lactate Order REFLEX LACTIC ORDERD
[2024-05-21 00:30] VITALS: PULSE 130; RESP 24; O2SAT 96
--- NOTE | 2024-05-21 00:40 | XRR_ITS ---
PROCEDURE INFORMATION: Exam: XR Chest Exam date and time: 05/21/2024 12:45 AM Age: 33 years old Clinical indication: Abnormal findings; Abnormal diagnostic tests; Abnormal ekg; Other: Tachycardia; Patient HX: Leukocytosis with tachyardia; Additional info: Tachycardia, leukocytosis TECHNIQUE: Imaging protocol: Radiologic exam of the chest. Views: 1 view. COMPARISON: CR XR ribs LT mn 3V w [id number] [id number] 02/16/2023 12:00 PM FINDINGS: Lungs: Unremarkable. No consolidation. Pleural spaces: Unremarkable. No pleural effusion. No pneumothorax. Heart/Mediastinum: Unremarkable. No cardiomegaly. Bones/joints: Unremarkable. XR/XR chest 1V portable [id number] IMPRESSION: No acute findings.
[2024-05-21 01:15] LABS: Lactic Acid level (Lactate) 1.1 mmol/L (0.5-2.2)
[2024-05-21 02:00] VITALS: BP 131/68; PULSE 121; RESP 20; O2SAT 98
[2024-05-21] MEDS: sodium chloride 0.9% 500 ML 999 ML IV ×2 (02:02)
[2024-05-21 02:17] VITALS: BP 133/89; PULSE 121; RESP 24; O2SAT 94
== END 2024-05-21 02:18 | disposition home or self-care (01) ==
PROVIDERS: Emergency Provider Emergency Medicine; PCP Family Medicine
DX: T50.901A Poisoning by unspecified drugs, medicaments and biological substances, accidental (unintentional), initial encounter (principal); X58.XXXA Exposure to other specified factors, initial encounter
CPT/HCPCS: 36415; 71045; 80053; 80306; 80307; 81001; 83605; 85025; 93005; 96361; 96374; 96375; 99285; J1630; J2060; J7030; J7040

== ENCOUNTER 2024-05-21 03:15 | Inpatient (IN) | payer MEDICARE, MEDICAID, SELFPAY ==
[2024-05-21 03:18] VITALS: BP 109/67; PULSE 133; RESP 20; TEMP 36.9; O2SAT 98; BMI 34.4
--- NOTE | 2024-05-21 03:35 | W.ED.PSYCHS ---
HPI - Psych General: Chief Complaint: Psychiatric Symptoms Stated Complaint: SI\HI Time Seen by Provider: 05/21/24 03:34 History of Present Illness: 33-year-old seen earlier in the morning. He was hallucinating at that point and delirious. He had taken an unintentional overdose of what he believed was acid. He was positive for amphetamines on his drug screen. He was also quite dehydrated, tachycardic, and had a lactic acidosis with anion gap. He was given 2 L of IV fluid, allowed to drink oral fluids, and improved. On discharge he seemed appropriate. Evidently on returning home, there were evidently people they are telling him he should kill himself. He decided that it was not safe to stay there, and he should come back in for psychiatric evaluation and help. Related Data Allergies Allergy/AdvReac Type Severity Reaction Status Date / Time No Known Allergies Allergy Verified 02/16/23 11:25 [facility] [place] ED PFSH: Medical History Nicotine dependence Major depressive disorder, recurrent, severe with psychotic symptoms Nightmares associated with chronic post-traumatic stress disorder ADHD, predominantly inattentive type Mood disorder Insomnia disorder, with non-sleep disorder mental comorbidity, recurrent Panic disorder with agoraphobia Post traumatic stress disorder (PTSD) Social History Smoking and tobacco/nicotine status: never used tobacco/nicotine Quit status (tobacco/nicotine): has tried quititng Number of times tried to quit tobacco: 12 Second hand smoke exposure: No Alcohol intake: current Alcohol intake frequency: holidays/special occasions only Alcohol type: beer and hard liquor Substance/Drug Use: former Date of last use: [age] yrs old. Physical Exam Const: COMMON NORMALS: no acute distress GENERAL APPEARANCE: cooperative; not ill appearing and not frail appearing HENMT: COMMON NORMALS: normocephalic, atraumatic and Normal external nose present HEAD & SCALP: normocephalic and atraumatic FACE & SINUS: normal facial exam and face symmetric NOSE: Normal external nose present Eye: COMMON NORMALS: Equal, round and reactive pupils present and EOMs intact bilaterally PUPIL: Yes Equal, round and reactive pupils present Neck/C-Spine: GENERAL: Yes trachea midline Chest: CHEST: Yes Symmetrical chest wall rise Resp: COMMON NORMALS: normal respiratory effort, No retractions, No use of accessory muscles and clear to auscultation bilaterally AUSCULTATION: clear to auscultation bilaterally Cardio: COMMON NORMALS: regular rhythm RATE: tachycardic RHYTHM: regular rhythm GI: COMMON NORMALS: Normal to inspection, nondistended, normoactive bowel sounds present Extremity: COMMON NORMALS: no pedal edema Neuro: JUAN COMA SCALE: document GCS findings [place] coma scale eye opening: Spontaneous [place] coma scale verbal response: Orientated [place] coma scale motor response: Obey commands [place] coma scale total score: 15 SENSORY EXAM: Yes extremities (intact) Psych: COMMON NORMALS: speech normal SPEECH: Yes normal speech Skin: COMMON NORMALS: no rashes or lesions noted GENERAL SKIN EXAM: no rashes or lesions noted Course Vital Signs: Vital signs: Vital Signs Temperature 98.4 F 05/21/24 03:18 Pulse Rate 133 H 05/21/24 03:18 Respiratory Rate 20 H 05/21/24 03:18 Blood Pressure 109/67 05/21/24 03:18 Pulse Oximetry 98 05/21/24 03:18 Oxygen Delivery Me thod Room Air 05/21/24 03:18 MDM - Psych Medical Decision Making 33-year-old male patient who is here earlier. He became suicidal he says after returning home. He had thoughts of hurting himself, although no specific plan. He is asking for psychiatric evaluation and treatment. Medically, he is mildly tachycardic, but otherwise stable. Lab Data Laboratory Results TSH 1.82 uIU/mL (0.27-4.20) 05/20/24 21:35 Urine Color [place] (Yellow) A 05/21/24 03:25 Urine Appearance Cloudy (CLEAR) A 05/21/24 03:25 Urine pH 5.5 (5-7) 05/21/24 03:25 Ur Specific [place] 1.032 (1.005-1.030) H 05/21/24 03:25 Urine Protein 2+ (Negative) A 05/21/24 03:25 Urine Glucose (UA) Negative (Normal) 05/21/24 03:25 Urine Ketones 3+ (Negative) H 05/21/24 03:25 Urine Blood Trace (Negative) A 05/21/24 03:25 Urine Nitrate Negative (Negative) 05/21/24 03:25 Urine Bilirubin 1+ (Negative) H 05/21/24 03:25 Urine Urobilinogen 1.0 mg/dL (Negative) 05/21/24 03:25 Ur Leukocyte Esterase Trace (Negative) A 05/21/24 03:25 Urine RBC 0-2 /hpf (0-2) 05/21/24 03:25 Urine WBC 21-50 /hpf (0-5) H 05/21/24 03:25 Ur Squamous Epith Cells 11-20 /hpf (0-5) 05/21/24 03:25 Amorphous Sediment Not Reportable 05/21/24 03:25 Urine Bacteria None seen /hpf (NONE) 05/21/24 03:25 Hyaline Casts 20.27 /lpf 05/21/24 03:25 Urine Opiates Screen Negative ng/mL (Negative) 05/21/24 03:25 Ur Barbiturates Screen Negative ng/mL (Negative) 05/21/24 03:25 Ur Phencyclidine Scrn Negative ng/mL (Negative) 05/21/24 03:25 Ur Amphetamines Screen Positive ng/mL (Negative) H 05/21/24 03:25 U Benzodiazepines Scrn Positive ng/mL (Negative) H 05/21/24 03:25 Urine Cocaine Screen Negative ng/mL (Negative) 05/21/24 03:25 U Marijuana (THC) Screen Negative ng/mL (Negative) 05/21/24 03:25 Influenza Type A Ag negative (Negative) 05/21/24 03:43 Influenza Type B Ag negative (Negative) 05/21/24 03:43 SARS-CoV-2 Ag (Rapid) negative (Negative) 05/21/24 03:43 No radiology studies performed this visit Discharge Plan Discharge Patient Disposition: Admitted As Inpatient Clinical Impression: Suicidal ideation Condition: Stable Coding Level of Care Code ED Tar Distillation Supervisor for Irwin Ventura
[2024-05-21 03:59] LABS: Bilirubin Urine 1+ (Negative); Blood Urine Trace (Negative); Glucose Urine UA Negative (Normal); Ketones Urine 3+ (Negative); Leukocyte Esterase Urine Trace (Negative); Nitrate Urine Negative (Negative); Protein Urine 2+ (Negative); Urine Appearance Cloudy (CLEAR); pH Urine 5.5 (5-7)
[2024-05-21 04:04] LABS: Bacteria Urine None Seen /hpf; Hyaline Casts Urine 20.27 /lpf; RBC Urine 0-2 /hpf (0-2); Universal Test for UA Present (0); WBC Urine 21-50 /hpf (0-5)
[2024-05-21 04:06] LABS: Thyroid Stimulating Hormone 1.82 uIU/mL (0.27-4.20)
[2024-05-21 04:06] LABS: Amphetamines Screen Urine Positive (Negative); Barbiturates Screen Urine Negative (Negative); Benzodiazepines Screen Urine Positive (Negative); Cocaine Screen Urine Negative (Negative); Opiate Screen Urine Negative (Negative); PCP Screen Urine Negative (Negative); THC Screen Urine Negative (Negative)
[2024-05-21 04:10] LABS: Influenza A by IFA negative (Negative); Influenza B by IFA negative (Negative); SARS Covid-2 Antigen negative (Negative)
[2024-05-21 04:21] LABS: Specific Gravity, Urine 1.032 (1.005-1.030); Urine Color Orange (Yellow)
[2024-05-21 04:22] LABS: Add Urine Culture? No
--- NOTE | 2024-05-21 04:56 | PC.NURSE ---
96 [facility] Pt served with copy of 96 [facility] by this RN and security. Pt A&Ox3, calm and cooperative. Denies having questions regarding 96 [facility].
[2024-05-21 05:30] VITALS: BP 117/68; PULSE 125; RESP 16; O2SAT 98
[2024-05-21 05:37] VITALS: BP 110/76; PULSE 121; RESP 18; TEMP 36.8; O2SAT 97
[2024-05-21 06:00] VITALS: BP 110/76; PULSE 121; RESP 18; TEMP 36.8; O2SAT 97
[2024-05-21] MEDS: nicotine 2 mg Gum BUCCAL (06:24)
[2024-05-21] MEDS: ibuprofen 600 mg Tablet PO (08:38)
[2024-05-21] MEDS: hyDROXYzine 25 mg Capsule 50 MG PO (08:40)
[2024-05-21] MEDS: blistex lip oint 7 gm Tube 1 APPLIC TOPICAL (08:40)
[2024-05-21 14:00] VITALS: BP 96/59; PULSE 110; RESP 17; TEMP 36.7; O2SAT 97
[2024-05-21] MEDS: nicotine 4 mg lozenge MUCOUS MEM (15:06)
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
[2024-05-21 20:53] VITALS: BP 132/82; PULSE 103; RESP 18; TEMP 36.8; O2SAT 99
[2024-05-22 06:00] VITALS: BP 117/75; PULSE 90; RESP 16; TEMP 36.6; O2SAT 99
[2024-05-22] MEDS: ARIPiprazole 10 mg Tablet 5 MG PO (08:20)
[2024-05-22] MEDS: sertraline 50 mg Tablet 25 MG PO (08:20)
[2024-05-22] MEDS: nicotine 2 mg Gum BUCCAL ×2 (10:57→14:53)
[2024-05-22] MEDS: hyDROXYzine 25 mg Capsule 50 MG PO (11:00)
--- NOTE | 2024-05-22 15:04 | DCPLANNER ---
IMM completed with pt on 05/22/2024 @ 1789. Pt was given a copy of rights and he stated he understood his rights.
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
[2024-05-22 16:32] VITALS: BP 117/75; PULSE 90; RESP 16; TEMP 36.7; O2SAT 99
[2024-05-22 16:33] LABS: Hepatitis A Antibody IgM Non-Reactive (Nonreactive); Hepatitis B Core AB, Total Non-Reactive (Nonreactive); Hepatitis B Surface AB 91.7 (11.5-1000); Hepatitis B Surface Antigen Non-Reactive (Nonreactive); Hepatitis C Virus Antibody Reactive (Nonreactive)
[2024-05-24 18:19] LABS: HEP C RNA Viral Load Quant 2340000 IU/mL (NOT DETECTED); HEP C RNA Viral Load Quant 6.37 Log IU/mL (NOT DETECTED)
== END 2024-05-22 17:31 | disposition home or self-care (01) | DRG 897 ==
LOC: ER 05:13 → NP 05:23
PROVIDERS: Psychiatry & Neurology Psychiatry; Admitting Provider Psychiatry & Neurology Psychiatry; Emergency Provider Emergency Medicine; PCP Family Medicine; Visit Provider Psychiatry & Neurology Psychiatry
DX: F15.959 Other stimulant use, unspecified with stimulant-induced psychotic disorder, unspecified (principal); E87.20 Acidosis, unspecified; F40.01 Agoraphobia with panic disorder; F43.10 Post-traumatic stress disorder, unspecified; Z62.810 Personal history of physical and sexual abuse in childhood
CPT/HCPCS: 36415; 80306; 81001; 84443; 86705; 86706; 86709; 86803; 87340; 87426; 87522; 87804; 97150; 97165; 99285

== ENCOUNTER → 2024-06-04 14:06 | Outpatient (BNVA) | payer MEDICARE, MEDICAID, SELFPAY | DX: Z76.89 Persons encountering health services in other specified circumstances (principal) | CPT/HCPCS: 80053; 85025 ==

== ENCOUNTER → 2024-11-22 14:55 | Outpatient (BNVA) | payer MEDICARE, MEDICAID, OTHER, SELFPAY | PROVIDERS: Visit Provider Nurse Practitioner Psychiatric/Mental Health | DX: Z79.899 Other long term (current) drug therapy (principal) | CPT/HCPCS: 80053; 80061; 83036 ==